=== PATIENT | male | born 1940 | race Caucasian/White ===

== ENCOUNTER 2020-11-13 14:30 | Emergency (ER) | payer OTHER, SELFPAY ==
--- NOTE | 2020-11-13 | ECG_ITS ---
Test Reason : CHEST PAIN Blood Pressure : / mmHG Vent. Rate : 060 BPM Atrial Rate : 060 BPM P-R Int : 194 ms QRS Dur : 092 ms QT Int : 430 ms P-R-T Axes : 005 -03 090 degrees QTc Int : 430 ms Normal sinus rhythm Anteroseptal infarct , age undetermined T wave abnormality, consider lateral ischemia Abnormal ECG When compared with ECG of 06-MAY-2012 13:46, Anteroseptal infarct is now Present T wave inversion now evident in Anterolateral leads Referred By: Generic ED Physician Electronically Signed By:Yovany Serna
--- NOTE | 2020-11-13 15:18 | ED_ITS ---
HPI - Chest Pain General Chief Complaint: Chest Pain Stated Complaint: chest pain Time Seen by Provider: 11/13/20 15:13 Source: patient Mode of arrival: ambulatory Limitations: no limitations History of Present Illness HPI narrative: did cardiac rehab today he denies any associated symptoms even did PT today which did not worsen his symptoms MD complaint: chest discomfort Pertinent past history: coronary artery disease and CABG Onset (ago): hour(s) (since he woke up early this AM) Timing of current episode: constant Onset: awoke with symptoms Pain location: right chest Pain radiation: none Severity: mild Quality: aching Relieving factors: nothing Exacerbating factors: nothing Context: recent surgery (s/p 3 V CABG 15 weeks ago at [facility]) Treatment prior to arrival: aspirin (daily dose) Related Data Allergies Allergy/AdvReac Type Severity Reaction Status Date / Time No Known Allergies Allergy Verified 11/13/20 15:27 Review of Systems Review of Systems: Constitutional : No Weight loss, No Fever, No Chills ENT/Mouth : No sore throat, No Rhinorrhea Eyes: No Eye Pain, No Swelling Cardiovascular : pos Chest Pain, no SOB, no Dyspnea on Exertion, No Orthopnea, No Edema, No Palpitations Respiratory : No Cough, No Sputum Gastrointestinal : pos Nausea, No Vomiting, No Diarrhea, No abdominal Pain, No Hematochezia, No Melena Genitourinary : No Dysuria, No Urinary Frequency Musculoskeletal : No joint pain, No Myalgias, No Joint Swelling Skin : No Skin Lesions, No rash Neuro : No Weakness, No Numbness, No Dizziness, No Headache Psych : No Anxiety/Panic, No Depression Heme/Lymph: No Bruising, No Lymphadenopathy Endocrine : No Polyuria, No Polydipsia All other systems reviewed and are negative [facility] Past Medical History Attestation statement: The following information was validated with the patient. Medical History Murmur, cardiac Surgical History S/P triple vessel bypass Social History Social History Alcohol intake: never Smoked in Last 30 Days: No Use of substances other than those prescribed or required for medical reasons: No Advance Directives: No Advance Directives Information Provided: No Physical Exam Vital Signs: Vital Signs: Last Vital Signs Pulse 61 11/13/20 15:41 Resp 16 11/13/20 15:41 BP 139/61 11/13/20 15:41 Pulse Ox 99 11/13/20 15:41 Body Mass Index 21.4 Appearance: Alert. Oriented X3. No acute distress. Eyes: Pupils equal, round and reactive to light. ENT: Pharynx normal. Neck: Normal inspection. Neck supple. CVS: Normal heart rate and rhythm. 3/6 systolic murmur loudest R sternum radiates to carotid Pulses normal. Respiratory: No respiratory distress. Breath sounds normal. Abdomen: Soft and nontender. Skin: Skin warm and dry. Normal skin color. Normal skin turgor. Extremities: No lower extremity edema. No calf ttp RLE slightly more swollen - graft sites healing well Neuro: Oriented X 3. No motor deficit. No sensory deficit. Course Course Course Narrative: signed out to Dr. Adams pending full workup, ddimer under upper limits of normal MDM - Chest Pain MDM Narrative Medical decision making narrative: 80 yo male s/p 3V CABG 15 weeks ago here with chest pain EKG is atypical but no STEMI we have tried to [facility] without success at this time labs, troponin x 2, ddimer given RLE swelling (no infection) dispo per results and findings Lab Data Result diagrams: 11/13/20 15:37 11/13/20 15:37 Labs: Lab Results 11/13/20 Range/Units 15:37 WBC 5.0 (4.8-10.8) X10*3/uL RBC 3.78 L (4.60-5.80) X10*6/uL Hgb 11.4 L (14.0-18.0) g/dl Hct 35.5 L (42-52) % MCV 93.9 (80-98) fL MCH 30.2 (27.0-33.0) pg MCHC 32.1 (31.0-36.0) g/dl RDW 14.8 (11.0-16.0) % Plt Count 163 (160-400) X10*3/uL MPV 10.6 (9.4-12.4) fL Immature Gran % (Auto) 0.4 (0.0-0.4) % Neut % (Auto) 54.4 (45-73) % Lymph % (Auto) 22.6 (20-40) % [place] % (Auto) 18.4 H (2-11) % Eos % (Auto) 3.8 (0-4) % Baso % (Auto) 0.4 (0-2) % Lymph # (Auto) 1.1 L (1.2-4.9) X10*3/uL [place] # (Auto) 0.9 (0.1-1.2) X10*3/uL Eos # (Auto) 0.2 (0.0-0.4) X10*3/uL Baso # (Auto) 0.0 (0.0-0.2) X10*3/uL Abs Immat Gran (auto) 0.02 (0.00-0.03) X10*3/uL Absolute Neuts (auto) 2.7 (2.0-8.3) X10*3/uL Absolute Nucleated RBC 0.000 (0.0-0.012) X10*3/uL Nucleated RBC % (auto) 0.0 (0.0-0.2) /100WBC ECG Data ECG #1: Attestation: I personally reviewed and interpreted this ECG as follows: ECG interpretation date: 11/13/20 ECG interpretation time: 15:19 Interpretation: Rate: 60 Rhythm: NSR [place]: left Normal P waves. Normal CLARICE. Normal QRS complex. ST T wave : no GHASSAN but inverted T waves in I aVL, V1-5 qTC: normal prior studies: 2011 was last NSR with no acute changes at that time The study has been interpreted contemporaneously by me. . Discharge Plan Discharge Clinical Impression: Atypical chest pain Instructions: Chest Pain (ED) Additional Instructions: return to ED for any worsening symptoms or concerns Referrals: Crow Romero MD [Primary Care Provider] - 2 days (call for next appointment if symptoms persist)
[2020-11-13 15:20] VITALS: BP 163/77; PULSE 65; RESP 16; O2SAT 99; BMI 21.4
--- NOTE | 2020-11-13 15:29 | XR_ITS ---
EXAMINATION: XR CHEST CLINICAL INFORMATION: Chest pain COMPARISON: None TECHNIQUE: Portable upright AP view of the chest was obtained. FINDINGS: There is no pneumothorax, airspace consolidation, or effusion. No pleural reaction. The costophrenic sulci are clear. There is disc atelectasis left lateral base and some mild coarsening of the infrahilar bronchiolar markings. No definite groundglass opacity. There are mediastinal clips and sternotomy wires. The heart is normal in size. The hilar and mediastinal contours are unremarkable. No visible acute bony abnormality. XR/XR chest 1V IMPRESSION: 1. Status post prior median sternotomy. No pneumothorax, vascular congestion, or effusion. 2. Disc atelectasis versus scarring left lateral base. Mild coarsening bronchiolar markings.
[2020-11-13 15:41] VITALS: BP 139/61; PULSE 61; RESP 16; O2SAT 99
[2020-11-13 15:44] LABS: Basophils Percent Auto 0.4 % (0-2); Eosinophils Absolute Auto 0.2 X10*3/uL (0.0-0.4); Eosinophils Percent Auto 3.8 % (0-4); Hematocrit 35.5 % (42-52); Hemoglobin 11.4 g/dl (14.0-18.0); Imm Gran Abs Auto 0.02 X10*3/uL (0.00-0.03); Imm Gran Pct Auto 0.4 % (0.0-0.4); Lymphocytes Absolute Auto 1.1 X10*3/uL (1.2-4.9); Lymphocytes Percent Auto 22.6 % (20-40); MANUAL DIFF FLAG NO; Mean Corpuscular HGB Conc 32.1 g/dl (31.0-36.0); Mean Corpuscular Hemoglobin 30.2 pg (27.0-33.0); Mean Corpuscular Volume 93.9 fL (80-98); Mean Platelet Volume 10.6 fL (9.4-12.4); Monocytes Absolute Auto 0.9 X10*3/uL (0.1-1.2); Monocytes Percent Auto 18.4 % (2-11); Neutrophils Absolute Auto 2.7 X10*3/uL (2.0-8.3); Neutrophils Percent Auto 54.4 % (45-73); Platelet Count 163 X10*3/uL (160-400); Red Blood Count 3.78 X10*6/uL (4.60-5.80); Red Cell Distribution Width 14.8 % (11.0-16.0)
[2020-11-13 15:59] LABS: Prothrombin Time 11.6 SEC (10.8-13.0)
[2020-11-13 16:01] LABS: Partial Thromboplastin Time 34.2 SEC (24.1-38.0)
[2020-11-13 16:02] LABS: D Dimer 249 NG/ML
[2020-11-13 16:11] LABS: Alanine Aminotransferase 25 U/L (0-40); Albumin Level 4.2 g/dL (3.5-5.0); Alkaline Phosphatase 102 U/L (39-117); Anion Gap 12 (12-20); Aspartate Amino Transferase 32 U/L (5-37); Bilirubin Direct 0.2 mg/dL (0.0-0.5); Bilirubin Total 0.4 mg/dL (0.0-1.0); Blood Urea Nitrogen 18 mg/dL (9-16); Calcium 8.5 mg/dL (8.4-10.2); Carbon Dioxide 27 mmol/L (22-29); Chloride 104 mmol/L (96-108); Creatinine Clr Calc Pharmacy 50.9; Estimated Glomerular Filt Rate > 60; Glucose Random 114 mg/dL (60-115); Lipase 74 U/L (8-78); Potassium 4.5 mmol/l (3.3-5.1); Sodium 138 mmol/L (135-145); Total Protein 6.9 g/dL (6.5-8.0)
[2020-11-13 16:19] LABS: Troponin-I High Sensitivity 20.9 ng/L (<3.5-35.0)
== END 2020-11-13 19:25 | disposition home or self-care (01) ==
PROVIDERS: Emergency Medicine; Emergency Provider Internal Medicine
DX: R07.89 Other chest pain (principal); R01.1 Cardiac murmur, unspecified
CPT/HCPCS: 36415; 71045; 80048; 80076; 83690; 83735; 84484; 85025; 85379; 85610; 85730; 93005; 99284

== ENCOUNTER → 2021-02-08 10:26 | Outpatient (BNVA) | payer OTHER, SELFPAY | PROVIDERS: Visit Provider Orthopaedic Surgery | DX: G56.01 Carpal tunnel syndrome, right upper limb (principal); G56.02 Carpal tunnel syndrome, left upper limb | CPT/HCPCS: 99202 ==

== ENCOUNTER 2021-03-08 14:07 | Day surgery (SDC) | payer OTHER, SELFPAY ==
[2021-03-08 14:38] VITALS: BP 127/64; PULSE 64; RESP 16; TEMP 36.5; O2SAT 97
[2021-03-08 15:18] VITALS: BMI 22.1
--- NOTE | 2021-03-08 15:45 | MHC.SHP ---
Pre-Procedural Eval Section B Chief Complaint: carpal tunnel Allergies: Allergies Allergy/AdvReac Type Severity Reaction Status Date / Time No Known Allergies Allergy Verified 02/08/21 10:38 Plan I have reviewed the history and physical and performed a pertinent physical examination on my patient. No changes have occurred unless specified.
--- NOTE | 2021-03-08 15:45 | W.PM.OPN ---
Operative Note Operative Note Date of Service: 03/08/21 Narrative: Preop diagnosis: 1. Right Carpal tunnel syndrome Postop diagnosis: 1. Right Carpal tunnel syndrome Procedure: 1. Right Carpal tunnel release Surgeon: Iraida Espana MD Anesthesia: local block using 1% lidocaine with epinephrine Findings: Thickened transverse carpal ligament. EBL: Less than 5 mL Specimens: None Complications: None Disposition: Brought to recovery room in stable condition Plan: Follow-up for 7-10 days for wound check and suture removal Indications: The patient is 80 years old, with right carpal tunnel syndrome that has been unresponsive to nonoperative management. The risks and benefits of operative treatment including but not limited to risk of damage to blood vessels, nerves, tendons, infection, persistent pain, persistent symptoms, or possible need for additional surgery were discussed with the patient and the patient wishes to proceed with surgery. Procedure: Once consent was obtained a local block was performed using a combination of 1% lidocaine with epinephrine. The patient was then brought back to the operating suite and placed on the operative table in supine position. A tourniquet was applied to the proximal aspect of the right upper extremity and the limb was prepped and draped in a standard surgical fashion. Once assured that we had a good block, a 1.5 cm longitudinal incision was made centered over the right carpal tunnel. The incision was made through the skin to the subcutaneous tissues using a #15 blade. Dissection was made down to the level of the transverse carpal ligament with care being taken to protect the palmar cutaneous nerve. Once the transverse carpal ligament was clearly visualized, a longitudinal incision was made in the transverse carpal ligament 1st using a #15 blade, then using tenotomy scissors under direct visualization. Care was taken to look for and protect the motor branch of the median nerve when seen in this area. Once satisfied with our carpal tunnel release the wound was copiously irrigated with normal saline and hemostasis was obtained with a brief period of local pressure. The skin edges were reapproximated with some 5.0 nylon suture material and a sterile dressing was applied. The patient appears to have tolerated the procedure well and with no complications. All digits were well vascularized at the conclusion of the case. susie
[2021-03-08 16:15] VITALS: BP 157/73; PULSE 66; RESP 18; TEMP 36.9; O2SAT 98
== END 2021-03-08 16:30 | disposition home or self-care (01) ==
PROVIDERS: Visit Provider Orthopaedic Surgery
PROC: (CPT 64721; principal; 2021-03-08 14:40)
DX: G56.01 Carpal tunnel syndrome, right upper limb (principal)
CPT/HCPCS: 64721

== ENCOUNTER → 2021-03-20 09:29 | Outpatient (BNVA) | payer OTHER, SELFPAY | PROVIDERS: Visit Provider Orthopaedic Surgery | DX: G56.03 Carpal tunnel syndrome, bilateral upper limbs (principal) | CPT/HCPCS: 99212 ==

== ENCOUNTER 2023-07-16 12:45 | Emergency (ER) | payer OTHER, SELFPAY ==
--- NOTE | 2023-07-16 12:47 | ECG_ITS ---
Test Reason : chest pain Blood Pressure : / mmHG Vent. Rate : 056 BPM Atrial Rate : 056 BPM P-R Int : 216 ms QRS Dur : 090 ms QT Int : 416 ms P-R-T Axes : 013 -02 096 degrees QTc Int : 401 ms Sinus bradycardia with 1st degree A-V block Anteroseptal infarct (cited on or before 13-NOV-2020) T wave abnormality, consider lateral ischemia Abnormal ECG When compared with ECG of 13-NOV-2020 15:08, T wave inversion no longer evident in Anterior leads Referred By: Hilary Hernandez Electronically Signed By:NURIA NOLASCO
[2023-07-16 12:52] VITALS: BP 163/66; PULSE 60; RESP 20; TEMP 36.8; O2SAT 98; BMI 22.9
--- NOTE | 2023-07-16 12:53 | ED.CHESTPAIN ---
HPI - Chest Pain General Chief Complaint: General Medical Stated Complaint: Taking Nitro Sent From [facility] Time Seen by Provider: 07/16/23 12:57 Related Data Home Medications Medication Instructions Recorded Confirmed aspirin 81 mg tablet,delayed 81 mg PO DAILY 02/08/21 release cetirizine 5 mg tablet 5 mg PO DAILY PRN 02/08/21 isosorbide dinitrate 5 mg tablet 5 mg PO BID 02/08/21 lisinopril 2.5 mg tablet 2.5 mg PO DAILY 02/08/21 metoprolol succinate 100 mg 100 mg PO DAILY 02/08/21 tablet,extended release 24 hr nitroglycerin 2.5 mg 2.5 mg PO BID 02/08/21 capsule,extended release ubiquinol 200 mg-B12 5 mg-folic cap PO 02/08/21 acid 0.8 mg-resveratrol 400 mg capsule Previous Rx's Medication Instructions Recorded hydrocodone 5 mg-acetaminophen 325 1 tab PO Q4-6H PRN pain #5 tabs 03/08/21 mg tablet Allergies Allergy/AdvReac Type Severity Reaction Status Date / Time No Known Allergies Allergy Verified 02/08/21 10:38 [facility] Past Medical History Medical History High blood pressure Murmur, cardiac Surgical History History of open heart surgery S/P triple vessel bypass Social History Social History Alcohol intake: never Advance Directives: No Advance Directives Information Provided: No Current occupational status: employed 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 denies CP at present. Denies SOB. Sent in from [place] EKG, labs, CXR ordered Full HPI, ROS and PE to be performed by primary ED provider. Reevaluation(s) Reevaluation #1: Was informed patients trop was 57.3 by Elsi Kelly Tried calling number in chart patients place of employment left general message asking Bryan to call us back to speak to me or a provider. No answer X2. Called emergency contact again it was his place of employment. Time: 09:59 Medical Decision Making Lab Data 07/16/23 13:27 07/16/23 13:27 Labs: Lab Results 07/16/23 07/16/23 07/16/23 Range/Units 13:27 13:27 13:27 WBC 3.7 L (4.8-10.8) X10*3/uL RBC 4.01 L (4.60-5.80) X10*6/uL Hgb 13.6 L (14.0-18.0) g/dl Hct 38.8 L (42.0-52.0) % MCV 96.8 (80.0-98.0) fL MCH 33.9 H (27.0-33.0) pg MCHC 35.1 (31.0-36.0) g/dl RDW 12.5 (11.0-16.0) % Plt Count 158 L (160-400) X10*3/uL MPV 10.1 (9.4-12.4) fL Immature Gran % (Auto) Cancelled Neut % (Auto) Cancelled Lymph % (Auto) Cancelled [place] % (Auto) Cancelled Eos % (Auto) Cancelled Baso % (Auto) Cancelled Lymph # (Auto) Cancelled [place] # (Auto) Cancelled Eos # (Auto) Cancelled Baso # (Auto) Cancelled Abs Immat Gran (auto) Cancelled Absolute Neuts (auto) Cancelled Absolute Nucleated RBC 0.000 (0.0-0.012) X10*3/uL Nucleated RBC % (auto) 0.0 (0.0-0.2) /100WBC Neutrophils % (Manual) 42 L (45-73) % Band Neutrophils % 6 H (3-5) % Lymphocytes % (Manual) 38 (20-40) % Monocytes % (Manual) 12 H (2-11) % Eosinophils % (Manual) 2 (0-4) % Abs Neuts (Manual) 1.8 L (2.0-8.3) X10*3/uL Lymphocytes # (Manual) 1.4 (1.2-4.9) X10*3/uL Monocytes # (Manual) 0.4 (0.1-1.2) X10*3/uL Eosinophils # (Manual) 0.1 (0.0-0.4) X10*3/uL Platelet Estimate NORMAL (NORMAL) Plt Morphology Comment NORMAL RBC Morphology NOTED Macrocytosis 1+ (5-14) /OIF [place] Cells 2+ (3-5) /OIF PT 11.7 (11.1-13.3) SEC INR 1.0 (0.9-1.1) Sodium 135 (135-145) mmol/L Potassium 4.6 (3.3-5.1) mmol/L Chloride 103 (96-108) mmol/L Carbon Dioxide 26 (22-29) mmol/L Anion Gap 11 L (12-20) BUN 16 (9-16) mg/dL Creatinine 1.11 (0.5-1.4) mg/dL Estim Creat Clear Calc 50.1 Estimated GFR > 60 Random Glucose 184 H (60-115) mg/dL Calcium 10.2 D (8.4-10.2) mg/dL Total Bilirubin 0.3 (0.0-1.0) mg/dL Direct Bilirubin 0.1 (0.0-0.5) mg/dL AST 21 (5-37) U/L ALT 15 (0-40) U/L Alkaline Phosphatase 84 (39-117) U/L Troponin I High Sens (<3.5-35.0) ng/L B-Natriuretic Peptide (<100) pg/mL Total Protein 7.7 (6.5-8.0) g/dL Albumin 4.5 (3.5-5.0) g/dL 07/16/23 07/16/23 Range/Units 13:27 13:27 WBC (4.8-10.8) X10*3/uL RBC (4.60-5.80) X10*6/uL Hgb (14.0-18.0) g/dl Hct (42.0-52.0) % MCV (80.0-98.0) fL MCH (27.0-33.0) pg MCHC (31.0-36.0) g/dl RDW (11.0-16.0) % Plt Count (160-400) X10*3/uL MPV (9.4-12.4) fL Immature Gran % (Auto) Neut % (Auto) Lymph % (Auto) [place] % (Auto) Eos % (Auto) Baso % (Auto) Lymph # (Auto) [place] # (Auto) Eos # (Auto) Baso # (Auto) Abs Immat Gran (auto) Absolute Neuts (auto) Absolute Nucleated RBC (0.0-0.012) X10*3/uL Nucleated RBC % (auto) (0.0-0.2) /100WBC Neutrophils % (Manual) (45-73) % Band Neutrophils % (3-5) % Lymphocytes % (Manual) (20-40) % Monocytes % (Manual) (2-11) % Eosinophils % (Manual) (0-4) % Abs Neuts (Manual) (2.0-8.3) X10*3/uL Lymphocytes # (Manual) (1.2-4.9) X10*3/uL Monocytes # (Manual) (0.1-1.2) X10*3/uL Eosinophils # (Manual) (0.0-0.4) X10*3/uL Platelet Estimate (NORMAL) Plt Morphology Comment RBC Morphology Macrocytosis /OIF [place] Cells /OIF PT (11.1-13.3) SEC INR (0.9-1.1) Sodium (135-145) mmol/L Potassium (3.3-5.1) mmol/L Chloride (96-108) mmol/L Carbon Dioxide (22-29) mmol/L Anion Gap (12-20) BUN (9-16) mg/dL Creatinine (0.5-1.4) mg/dL Estim Creat Clear Calc Estimated GFR Random Glucose (60-115) mg/dL Calcium (8.4-10.2) mg/dL Total Bilirubin (0.0-1.0) mg/dL Direct Bilirubin (0.0-0.5) mg/dL AST (5-37) U/L ALT (0-40) U/L Alkaline Phosphatase (39-117) U/L Troponin I High Sens 57.3 H (<3.5-35.0) ng/L B-Natriuretic Peptide 87 (<100) pg/mL Total Protein (6.5-8.0) g/dL Albumin (3.5-5.0) g/dL Discharge Plan Discharge Clinical Impression: Chest pain Patient Disposition: Elopement Prescriptions: No Action hydrocodone-acetaminophen 5-325 mg tablet 1 tab PO Q4-6H PRN (Reason: pain) Qty: 5 0RF Interventions: ED Discharge Assessment Last Done: 07/16/23 14:10 Discharge Date/Time: 07/16/23 14:10
[2023-07-16 13:35] LABS: Hematocrit 38.8 % (42.0-52.0); Hemoglobin 13.6 g/dl (14.0-18.0); Mean Corpuscular HGB Conc 35.1 g/dl (31.0-36.0); Mean Corpuscular Hemoglobin 33.9 pg (27.0-33.0); Mean Corpuscular Volume 96.8 fL (80.0-98.0); Mean Platelet Volume 10.1 fL (9.4-12.4); Platelet Count 158 X10*3/uL (160-400); Red Blood Count 4.01 X10*6/uL (4.60-5.80); Red Cell Distribution Width 12.5 % (11.0-16.0); White Blood Count 3.7 X10*3/uL (4.8-10.8)
[2023-07-16 13:53] LABS: Alanine Aminotransferase 15 U/L (0-40); Albumin Level 4.5 g/dL (3.5-5.0); Alkaline Phosphatase 84 U/L (39-117); Anion Gap 11 (12-20); Aspartate Amino Transferase 21 U/L (5-37); Bilirubin Direct 0.1 mg/dL (0.0-0.5); Bilirubin Total 0.3 mg/dL (0.0-1.0); Blood Urea Nitrogen 16 mg/dL (9-16); Calcium 10.2 mg/dL (8.4-10.2); Carbon Dioxide 26 mmol/L (22-29); Chloride 103 mmol/L (96-108); Creatinine Clr Calc Pharmacy 50.1; Estimated Glomerular Filt Rate > 60; Glucose Random 184 mg/dL (60-115); Potassium 4.6 mmol/L (3.3-5.1); Sodium 135 mmol/L (135-145); Total Protein 7.7 g/dL (6.5-8.0)
[2023-07-16 13:57] LABS: B Type Natriuretic Peptide 87 pg/mL (<100)
[2023-07-16 13:59] LABS: Troponin-I High Sensitivity 57.3 ng/L (<3.5-35.0)
[2023-07-16 14:06] LABS: Band Neutrophils Percent 6 % (3-5); Eosinophils Absolute Manual 0.1 X10*3/uL (0.0-0.4); Eosinophils Percent Manual 2 % (0-4); Lymphocytes Absolute Manual 1.4 X10*3/uL (1.2-4.9); Lymphocytes Percent Manual 38 % (20-40); Monocytes Absolute Manual 0.4 X10*3/uL (0.1-1.2); Monocytes Percent Manual 12 % (2-11); Neutrophils Absolute Manual 1.8 X10*3/uL (2.0-8.3); Neutrophils Percent Manual 42 % (45-73)
[2023-07-16 14:07] LABS: Burr Cells 2+ (3-5) /OIF; Macrocytosis 1+ (5-14) /OIF; Platelet Estimate NORMAL (NORMAL); Platelet Morphology Comment NORMAL; Prothrombin Time 11.7 SEC (11.1-13.3); RBC Morphology NOTED
== END 2023-07-16 14:10 | disposition left against medical advice (07) ==
PROVIDERS: Physician Assistant; Emergency Provider Emergency Medicine
DX: R07.89 Other chest pain (principal); R06.02 Shortness of breath; Z79.899 Other long term (current) drug therapy
CPT/HCPCS: 36415; 80048; 80076; 83880; 84484; 85007; 85027; 85610; 93005; 99283

== ENCOUNTER → 2023-09-22 09:38 | Outpatient (REF) | payer OTHER, SELFPAY ==
--- NOTE | ~2023-09-22 | NM_ITS ---
Exercise Myocardial perfusion study Indication: Shortness of breath with prior coronary artery bypass grafting to evaluate for myocardial ischemia Technique: The patient was brought in for an exercise perfusion study on 09/22/2023. Patient performed exercise as per Curtis protocol and was injected 25 mCi of sestamibi was given intravenously one target HR was achieved. Images were obtained using the SPECT gamma camera interlaced with the gating device. Images were obtained in supine position. Resting perfusion study was performed on 09/23/2023. Patient was administered 25 mCi of sestamibi intravenously at rest. Images were then obtained in supine position. Images obtained with and without CT attenuation. Total DLP 85 mGy-cm Images were processed with the software and compared side to side in short axis, horizontal long axis and vertical long axis views. Findings: The stress perfusion study showed images show mildly reduced uptake in the anterior as well as moderately reduced uptake in the basal and mid lateral as well as severely reduced uptake in the basal and mid anterolateral wall of the LV myocardium. Is also mildly reduced uptake in the septum and anteroseptal wall of the LV myocardium. Attenuated corrected images shows large area of moderately reduced uptake in the anterior, anterolateral, lateral and anteroseptal wall of the LV myocardium.. The gated study shows reduced LV systolic function with calculated LVEF of 35%. LV cavity is moderately dilated in size. The gated study shows reduced wall thickening and contraction of anterior and anterolateral as well as anteroseptal segments. There is mild to moderate transient ischemic dilation. Resting study shows attenuated corrected images show normal uptake of radiotracer in all segments of LV myocardium. Gating at rest reveals normal systolic wall motion with ejection fraction at 60%. The findings are consistent with large area of reversible defect in the anterior, anterolateral, anteroseptal, lateral wall of the LV myocardium consistent with ischemia in LAD territory. NM/NM elton perf SPECT rest & str Impression: 1. Large area of ischemia in the LAD territory 2. Gated LVEF is 35% with stress and 60% with rest 3. Transient ischemic dilatation present Stress EKG is positive for ischemia
--- NOTE | 2023-09-22 09:42 | CA_ITS ---
Acquisition Time: 2023-09-22 09:51:45 Total Exercise Time: 00:05:18 Test Indications: ANGINA Medications: Protocol: REKHA Max HR: 116 BPM 84% of Pred: 137 BPM Max BP: 142/070 mmHG Max Work Load: 7.0 METS Exerise stress test exercise 5 min 18 sec of Rekha protocol achieivng 83% MPHR, terminated due to EKG changes, with mild to moderate SOB, without chest discomfort, with BPs 128/62, exercise 142/62, peak 118/60, recovery 122/68, with positive EKGs for ischemia. Test reviewed with Dr Garcia. Call placed to ordering provider. Referred By: Walter De Jesus Overread By: Gerri Mariano
== END ==
LOC: HO.CARD 09:38
PROVIDERS: Visit Provider Internal Medicine Cardiovascular Disease
DX: I25.118 Atherosclerotic heart disease of native coronary artery with other forms of angina pectoris (principal)
CPT/HCPCS: 78452; 93017; A9500

== ENCOUNTER → 2023-09-22 09:47 | Outpatient (BNV) | payer OTHER, SELFPAY | PROVIDERS: Visit Provider Internal Medicine Cardiovascular Disease | DX: I25.10 Atherosclerotic heart disease of native coronary artery without angina pectoris (principal) | CPT/HCPCS: 78452; 93016; 93018 ==

== ENCOUNTER 2023-09-24 10:28 | Outpatient (AMB) | payer OTHER, SELFPAY ==
--- NOTE | 2023-09-24 10:37 | A.OFFVIS_ITS ---
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 He h ad CABG x 4, 4 years ago in [facility]. He said he did fine after that but started getting chest discomfort with activities for which he would use nitroglycerin. He has been using NTG for long time. He is somewhat poor historian. He had stress test recently where he had ECG changes and CP. His blood pressure is mildly elevated. He has not taking aspirin. 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 Review of Systems Const Denies chills, Denies daytime sleepiness, Denies fatigue, Denies fever(s), Denies frequent falls, Denies night sweats, Denies snoring, Denies weakness, Denies weight gain and Denies weight loss Eyes Denies loss of vision ENT Denies dizziness and Denies hearing loss Card Denies chest pain, Denies chest pain with activity, Denies syncope, Denies rapid heart rate, Denies edema, Denies claudication, Denies leg edema, Denies lightheadedness, Denies palpitations, Denies dyspnea, Denies dyspnea on exertion and Denies orthopnea Resp Denies cough, Denies excessive phlegm production, Denies dyspnea, Denies dyspnea on exertion, Denies snoring and Denies wheezing GI Denies abdominal pain, Denies hematochezia, Denies change in bowel habits, Denies change in stool character, Denies heartburn, Denies nausea and Denies vomiting Denies hematuria, Denies dysuria and Denies urinary frequency Musc Denies arthralgias, Denies muscle weakness, Denies numbness and Denies tingling Skin/Breast Denies nail changes and Denies rash Neuro Denies Abnormal speech present, Denies dizziness, Denies syncope, Denies frequent falls, Denies loss of vision, Denies memory loss, Denies numbness, Denies tingling and Denies weakness Psych Denies depression and Denies memory loss Endo Denies fatigue and Denies palpitations Aller/Immun Denies wheezing Physical Exam Vital Signs: Last Vital Signs Pulse 60 09/24/23 10:39 BP 142/66 H 09/24/23 10:39 BMI result Body Mass Index 23.0 GENERAL APPEARANCE: in no acute distress. NECK: no carotid bruit, no jugular venous distention. SKIN: no suspicious lesions, warm and dry. HEART: no murmurs, regular rate and rhythm. LUNGS: clear to auscultation bilaterally. ABDOMEN: soft, nontender. EXTREMITIES: no edema. PERIPHERAL PULSES: equal. NEUROLOGIC: No gross deficits, AAO X 3 Neuro Speech: No Abnormal speech present Assessment & Plan Assessment & Plan (1) Stable angina: Code(s): I20.89 - Other forms of angina pectoris (2) Essential hypertension: Code(s): I10 - Essential (primary) hypertension (3) Abnormal stress test: Code(s): R94.39 - Abnormal result of other cardiovascular function study (4) S/P triple vessel bypass: Code(s): Z95.1 - Presence of aortocoronary bypass graft Plan 83-year-old male with previous CABG and abnormal stress test. He has stable angina. ECG has anterior infarct with Q waves. Will check echo. Given symptoms and abnormal stress test I have advised him to get cardiac cath. Adding ASA and amlodipine 2.5 mg. He wants to check if he can get cath at [place]. If he wishes to get it done at [facility] then he will message us. Orders: Orders CA echo transthoracic complete Today I20.89 - Other forms of angina pectoris Medications: New amlodipine 2.5 mg PO DAILY 60 tabs 3RF I20.89 - Other forms of angina pectoris aspirin 81 mg PO DAILY 100 tabs 4RF I20.89 - Other forms of angina pectoris Coding Level of Care Code New Pt Level 4 (22589) Diagnoses Stable angina I20.89 Essential hypertension I10 Abnormal stress test R94.39 S/P triple vessel bypass Z95.1
[2023-09-24 10:39] VITALS: BP 142/66; PULSE 60; BMI 23.0
== END 2023-09-24 11:17 | disposition home or self-care (01) ==
PROVIDERS: Visit Provider Internal Medicine Cardiovascular Disease
DX: I20.89 Other forms of angina pectoris (principal); I10 Essential (primary) hypertension; R94.39 Abnormal result of other cardiovascular function study; Z95.1 Presence of aortocoronary bypass graft
CPT/HCPCS: 99214

== ENCOUNTER → 2023-09-24 10:28 | Outpatient (BNVA) | payer OTHER, SELFPAY | PROVIDERS: Visit Provider Internal Medicine Cardiovascular Disease | DX: I20.89 Other forms of angina pectoris (principal); I10 Essential (primary) hypertension; Z95.1 Presence of aortocoronary bypass graft; R94.39 Abnormal result of other cardiovascular function study | CPT/HCPCS: 99212 ==

== ENCOUNTER 2023-10-13 12:24 | Outpatient (AMB) | payer OTHER, SELFPAY ==
[2023-10-13 12:35] VITALS: BP 126/68; PULSE 71; O2SAT 96; BMI 22.7
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
== END 2023-10-13 13:26 | disposition home or self-care (01) ==
PROVIDERS: Visit Provider Internal Medicine Cardiovascular Disease
DX: R55 Syncope and collapse (principal); Z95.1 Presence of aortocoronary bypass graft; I20.89 Other forms of angina pectoris
CPT/HCPCS: 99214

== ENCOUNTER → 2023-10-13 12:24 | Outpatient (BNVA) | payer OTHER, SELFPAY | PROVIDERS: Visit Provider Internal Medicine Cardiovascular Disease | DX: I20.89 Other forms of angina pectoris (principal); R55 Syncope and collapse; Z95.1 Presence of aortocoronary bypass graft | CPT/HCPCS: 99212 ==

== ENCOUNTER → 2023-10-27 14:09 | Outpatient (REF) | payer OTHER, SELFPAY ==
--- NOTE | 2023-10-27 14:12 | HM_ITS ---
* Procedure length 30 days. Wear time 21 days. * Underlying rhythm is sinus 97% the time. Average ventricular rate 72/Min. Range 50 to 120/Min. * Occasional ventricular ectopy with a burden of 1.2%. Isolated beats. No significant runs. * Rare supraventricular ectopy with a burden of less than 1%. Very brief runs. * No significant pauses or heart blocks. * No symptoms mentioned in diary. MTDD
== END ==
LOC: HO.CARD 14:09
PROVIDERS: Visit Provider Internal Medicine Cardiovascular Disease
DX: R55 Syncope and collapse (principal)
CPT/HCPCS: 93270

== ENCOUNTER → 2023-10-27 14:12 | Outpatient (BNV) | payer OTHER, SELFPAY | PROVIDERS: Visit Provider Internal Medicine | DX: I47.10 Supraventricular tachycardia, unspecified (principal) | CPT/HCPCS: 93272 ==

== ENCOUNTER 2023-12-15 11:31 | Outpatient (AMB) | payer OTHER, SELFPAY ==
[2023-12-15 11:35] VITALS: BP 140/62; PULSE 70; BMI 21.9
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
== END 2023-12-15 12:34 | disposition home or self-care (01) ==
PROVIDERS: Visit Provider Internal Medicine Cardiovascular Disease
DX: I20.89 Other forms of angina pectoris (principal); Z95.1 Presence of aortocoronary bypass graft
CPT/HCPCS: 99214

== ENCOUNTER → 2023-12-15 11:31 | Outpatient (BNVA) | payer OTHER, SELFPAY | PROVIDERS: Visit Provider Internal Medicine Cardiovascular Disease | DX: I20.89 Other forms of angina pectoris (principal); Z95.1 Presence of aortocoronary bypass graft | CPT/HCPCS: 99212 ==

== ENCOUNTER 2024-03-01 14:54 | Outpatient (AMB) | payer OTHER, SELFPAY ==
[2024-03-01 15:01] VITALS: BP 126/60; PULSE 68; BMI 22.1
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
== END 2024-03-01 15:36 | disposition home or self-care (01) ==
PROVIDERS: Visit Provider Internal Medicine Cardiovascular Disease
DX: I20.89 Other forms of angina pectoris (principal); R55 Syncope and collapse; Z95.1 Presence of aortocoronary bypass graft; I35.0 Nonrheumatic aortic (valve) stenosis
CPT/HCPCS: 99214

== ENCOUNTER → 2024-03-01 14:54 | Outpatient (BNVA) | payer OTHER, SELFPAY | PROVIDERS: Visit Provider Internal Medicine Cardiovascular Disease | DX: I20.89 Other forms of angina pectoris (principal); I35.0 Nonrheumatic aortic (valve) stenosis; R55 Syncope and collapse; Z95.1 Presence of aortocoronary bypass graft | CPT/HCPCS: 99212 ==

== ENCOUNTER 2024-06-21 13:30 | Outpatient (AMB) | payer OTHER, SELFPAY ==
[2024-06-21 14:05] VITALS: BP 120/60; PULSE 77; BMI 22.3
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
== END 2024-06-21 14:42 | disposition home or self-care (01) ==
PROVIDERS: Visit Provider Internal Medicine Cardiovascular Disease
DX: I35.0 Nonrheumatic aortic (valve) stenosis (principal); R55 Syncope and collapse; Z95.1 Presence of aortocoronary bypass graft; I20.89 Other forms of angina pectoris
CPT/HCPCS: 93010; 99214

== ENCOUNTER → 2024-06-21 13:30 | Outpatient (BNVA) | payer OTHER, SELFPAY | PROVIDERS: Visit Provider Internal Medicine Cardiovascular Disease | DX: I35.0 Nonrheumatic aortic (valve) stenosis (principal); I20.89 Other forms of angina pectoris; R55 Syncope and collapse; Z95.1 Presence of aortocoronary bypass graft | CPT/HCPCS: 93005; 99212 ==

== ENCOUNTER → 2024-07-20 13:51 | Outpatient (REF) | payer OTHER, SELFPAY ==
--- NOTE | 2024-07-20 13:53 | CA_ITS ---
Transthoracic Echocardiogram Patient (Last, First, Middle): Bryan Noble H Gender: Male Date of : 1940 Age: 84 Procedure Date: 07/20/2024 Procedure Type: Transthoracic Echocardiogram Location: OP Height: 177.8 cm Weight: 68.04 kg BSA: 1.85 m2 Heart Rate: bpm BP: 118 / 62 mmHg Associate Merchandise Planner: TO Referring MD: Yovany Serna MD Surveying Crew Rodman: Yovany Serna MD Symptoms: I35.0 - Nonrheumatic aortic (valve) stenosis Study Quality: Fair, contrast Conclusions: - Normal left ventricular cavity size. There is normal left ventricular wall thickness. The left ventricular systolic function is moderately decreased. The visually estimated ejection fraction is between 30-35%. - The apex, apical anterior, mid anterior, apical lateral, and mid anterolateral segments are hypokinetic. - Normal right ventricular cavity size. There is mild to moderately decreased right ventricular systolic function. - There is moderate to severe aortic valve stenosis. The peak aortic velocity is 2.59 m/s. The mean gradient is 19 mmHg. The aortic valve area is 0.96 cm2. SVI 40. Findings Procedure Information Contrast agent, definity, is being given per protocol without apparent complications. Left Ventricle Normal left ventricular cavity size. There is normal left ventricular wall thickness. The left ventricular systolic function is moderately decreased. The visually estimated ejection fraction is between 30-35%. There is evidence of regional wall motion abnormalities. Diastolic function is indeterminate on the basis of available data. Wall Motion Rest Echo Findings The apex, apical anterior, mid anterior, apical lateral, and mid anterolateral segments are hypokinetic. Right Ventricle Normal right ventricular cavity size. There is mild to moderately decreased right ventricular systolic function. Atria The left atrium is severely dilated. The right atrium is normal in size. Aortic Valve There is severe calcification of the aortic valve. There is moderate thickening of the aortic valve. There is moderate to severe aortic valve stenosis. The peak aortic velocity is 2.59 m/s. The mean gradient is 19 mmHg. The aortic valve area is 0.96 cm2. There is mild aortic valve regurgitation. Mitral Valve The mitral valve appears normal. There is mild mitral valve regurgitation. There is no mitral valve stenosis. Pulmonic Valve The pulmonic valve is normal. There is trace pulmonic valve regurgitation. Tricuspid Valve Normal tricuspid valve structure. There is no tricuspid valve regurgitation. Normal right atrial pressure. There is no evidence of pulmonary hypertension. Great Vessels There is mild dilatation of the sinuses of Valsalva measuring 3.97 cm and mild dilatation of the ascending aorta measuring 3.70 cm. The visualized portions of the pulmonary artery and branches are normal. Venous The inferior vena cava is normal in size and collapses greater than 50% with inspiration. Pericardium/Pleural There is no evidence of pericardial effusion. Prior Study Comparison Significant changes compared to prior study dated: 05/14/2017. EF 30-35%, LAD territory wall motion, mod to severe . Measurements 2D Linear Measurements IVSd: 1.11 0.6-0.9/0.6-1.0 cm LVIDd: 4.99 3.9-5.3/4.2-5.9 cm LVIDd Index: 2.70 2.4-3.2/2.2-3.1 cm/m2 LVIDs: 3.87 2.0-3.6 cm LVPWd: 0.76 0.7-1.1 cm LA Diam: 4.30 2.7-3.8/3.0-4.0 cm LAIDs Index: 2.32 1.5-2.3 cm/m2 LV Mass: 206.37 67-162/88-224 g LV Mass Index: 111.55 43-95/49-115 g/m2 LVOT Diam: 2.00 3.0+(-)1.3 cm 2D Systolic Function EF 4C: 33.70 >55% EF 2C: 43.20 >55% EF BiP: 39.20 >55% Aortic Valve AoV Pk Chinmay: 2.59 AoV Mn Chinmay: 2.08 AoV VTI: 0.55 AoV Pk Grad: 27.00 Aov Mn Grad: 19.00 JERICHO Cont.VTI: 0.96 LVOT LVOT Pk Chinmay: 0.81 LVOT Mn Chinmay: 0.59 LVOT VTI: 0.17 LVOT Pk Grad: 3.00 LVOT Mn Grad: 2.00 LVOT Diam: 2.00 LVOT Area: 3.14 Right Ventricle TAPSE (mm): 12.60 TVS' Chinmay: 7.62 Tricuspid Valve TR Pk Chinmay: 2.60 TR Pk Grad: 27.00 RA Press: 3.00 RVSP: 30.00 Great Vessels Aorta Sinus of Valsalva: 3.97 2.0-3.5 cm Ao Asc: 3.70 2.1-3.4 cm Ao Arch: 3.30 Updated in Other Vendor System with Status of Final Yovany Serna MD electronically signed on 07/20/2024 6:47:23 PM with status of Final
== END ==
LOC: HO.CARD 13:51
PROVIDERS: PCP Internal Medicine; Visit Provider Internal Medicine Cardiovascular Disease
DX: I35.0 Nonrheumatic aortic (valve) stenosis (principal)
CPT/HCPCS: 93306; Q9957

== ENCOUNTER → 2024-07-20 13:53 | Outpatient (BNV) | payer OTHER, SELFPAY | PROVIDERS: PCP Internal Medicine; Visit Provider Internal Medicine Cardiovascular Disease | DX: I35.2 Nonrheumatic aortic (valve) stenosis with insufficiency (principal); I34.0 Nonrheumatic mitral (valve) insufficiency; R93.1 Abnormal findings on diagnostic imaging of heart and coronary circulation | CPT/HCPCS: 93306 ==

== ENCOUNTER → 2024-07-29 23:59 | Outpatient (BNV) | payer OTHER, SELFPAY | PROVIDERS: PCP Internal Medicine; Visit Provider Internal Medicine Cardiovascular Disease | DX: I42.9 Cardiomyopathy, unspecified (principal); I35.0 Nonrheumatic aortic (valve) stenosis; R93.1 Abnormal findings on diagnostic imaging of heart and coronary circulation | CPT/HCPCS: 93461; 99152 ==

== ENCOUNTER 2024-08-12 13:22 | Outpatient (AMB) | payer OTHER, SELFPAY ==
--- NOTE | 2024-08-12 14:05 | A.OFFVIS_ITS ---
Vital Signs 08/12/24 14:10 Height 5 ft 9 in Weight 138 lb 14.259 oz BMI 20.5 BP 110/62 Blood Pressure Location Lt brachial Position Sitting Pulse 76 Pulse Source Pulse Oximeter Intake Visit Reasons: Follow up post cardiac cath Allergies No Known Allergies Allergy (Verified 10/13/23 12:39) Medication List - Last Reconciled 08/16/24 by Gerri Mariano NP aspirin 81 mg PO DAILY atorvastatin 40 mg PO DAILY coQ10 (ubiquinol) (CoQmax Ubiquinol) 200 mg PO DAILY furosemide 20 mg PO DAILY lisinopril 10 mg PO DAILY metoprolol succinate ER 100 mg PO DAILY spironolactone 40 mg PO DAILY HPI Comments Details: 4-year-old male presents today for a follow up post cardiac catheterization. He would a cardiac catheterization with Dr. Serna on 07/29/2024. He has a history of aortic stenosis, syncope, triple vessel bypass, and hypertension. He had myocardial perfusion imaging which showed LAD territory ischemia was supposed to have a cardiac catheterization at the end of 2022 but due to spinal fracture it was held off. 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 Review of Systems Const Denies weakness ENT Denies dizziness Card Denies chest pain, Denies chest pain with activity, Denies syncope, Denies rapid heart rate, Denies pedal edema, Denies edema, Denies leg edema, Denies lightheadedness, Denies palpitations, Denies dyspnea, Denies dyspnea on exertion and Denies orthopnea Resp Denies cough, Denies dyspnea and Denies dyspnea on exertion GI Denies hematochezia and Denies change in stool character Musc Denies abnormal gait, Denies muscle cramps, Denies muscle weakness, Denies numbness, Denies radiating pain into limb and Denies tingling Neuro Denies abnormal gait, Denies dizziness, Denies syncope, Denies numbness, Denies tingling and Denies weakness Endo Denies palpitations Physical Exam Vital Signs: Last Vital Signs Pulse 76 08/12/24 14:10 BP 110/62 08/12/24 14:10 BMI result Body Mass Index 20.5 Assessment & Plan Assessment & Plan (1) S/P cardiac catheterization: Code(s): Z98.890 - Other specified postprocedural states Category: Surgical (2) S/P triple vessel bypass: Code(s): Z95.1 - Presence of aortocoronary bypass graft Category: Surgical (3) Essential hypertension: Code(s): I10 - Essential (primary) hypertension Category: Medical Plan Cardiac catheterization did not explain level of cardiomyopathy. Had patent HEATH to LAD and SVG to L-PDA. He was diuresed overnight at [facility]. We will switch from lisinopril to losartan. If tolerates losartan we will try Entresto. We will also add Jardiance. He is on a baby aspirin, metoprolol, furosemide, atorvastatin, and spironolactone. We will repeat blood work. Orders: Orders Basic Metabolic Panel Today I10 - Essential (primary) hypertension, Z95.1 - Presence of aortocoronary bypass graft, Z98.890 - Other specified postprocedural states Lipid Panel Today I10 - Essential (primary) hypertension, Z95.1 - Presence of aortocoronary bypass graft, Z98.890 - Other specified postprocedural states B Type Natriuretic Peptide Today I10 - Essential (primary) hypertension, Z95.1 - Presence of aortocoronary bypass graft, Z98.890 - Other specified postprocedural states Medications: New losartan 25 mg PO DAILY 30 tabs 0RF empagliflozin (Jardiance) 10 mg PO DAILY 30 tabs 0RF Coding Level of Care Code Est Pt Level 4 (78740) Diagnoses S/P cardiac catheterization Z98.890 S/P triple vessel bypass Z95.1 Essential hypertension I10
[2024-08-12 14:10] VITALS: BP 110/62; PULSE 76; BMI 20.5
== END 2024-08-12 14:42 | disposition home or self-care (01) ==
PROVIDERS: PCP Internal Medicine; Visit Provider Nurse Practitioner
DX: Z98.890 Other specified postprocedural states (principal); Z95.1 Presence of aortocoronary bypass graft; I10 Essential (primary) hypertension
CPT/HCPCS: 99214

== ENCOUNTER → 2024-08-12 13:22 | Outpatient (BNVA) | payer OTHER, SELFPAY | PROVIDERS: PCP Internal Medicine; Visit Provider Nurse Practitioner | DX: I35.0 Nonrheumatic aortic (valve) stenosis (principal); I10 Essential (primary) hypertension; Z98.890 Other specified postprocedural states; Z95.1 Presence of aortocoronary bypass graft | CPT/HCPCS: 99212 ==

== ENCOUNTER 2024-09-03 09:09 | Outpatient (REF) | payer OTHER, SELFPAY ==
[2024-09-03 11:25] LABS: B Type Natriuretic Peptide 376 pg/mL (<100)
[2024-09-03 13:18] LABS: Anion Gap 12 (12-20); Blood Urea Nitrogen 24 mg/dL (9-16); Calcium 9.7 mg/dL (8.4-10.2); Carbon Dioxide 22 mmol/L (22-29); Chloride 103 mmol/L (96-108); Cholesterol 108 mg/dL (<200); Estimated Glomerular Filt Rate 57; Glucose Random 150 mg/dL (60-115); HDL Cholesterol 52 mg/dL (>40); LDL Cholesterol Calculated 24 mg/dL (<100); Potassium 4.4 mmol/L (3.3-5.1); Sodium 133 mmol/L (135-145); Triglycerides 161 mg/dL (<150)
== END 2024-09-03 09:10 | disposition home or self-care (01) ==
LOC: HO.LAB 09:09
PROVIDERS: Absent Provider Internal Medicine Cardiovascular Disease; Visit Provider Nurse Practitioner
DX: I10 Essential (primary) hypertension (principal); Z95.1 Presence of aortocoronary bypass graft; Z98.890 Other specified postprocedural states
CPT/HCPCS: 36415; 80048; 80061; 83880

== ENCOUNTER 2024-09-08 11:30 | Outpatient (REF) | payer OTHER, SELFPAY ==
[2024-09-08 12:29] LABS: Hematocrit 35.3 % (42.0-52.0); Hemoglobin 12.2 g/dl (14.0-18.0); Mean Corpuscular HGB Conc 34.6 g/dl (31.0-36.0); Mean Corpuscular Hemoglobin 33.4 pg (27.0-33.0); Mean Corpuscular Volume 96.7 fL (80.0-98.0); Mean Platelet Volume 10.9 fL (9.4-12.4); Platelet Count 166 X10*3/uL (160-400); Red Blood Count 3.65 X10*6/uL (4.60-5.80); Red Cell Distribution Width 12.6 % (11.0-16.0); White Blood Count 4.8 X10*3/uL (4.8-10.8)
[2024-09-08 12:45] LABS: Prothrombin Time 11.4 SEC (10.9-12.4)
[2024-09-08 12:58] LABS: Anion Gap 14 (12-20); Blood Urea Nitrogen 19 mg/dL (9-16); Calcium 9.6 mg/dL (8.4-10.2); Carbon Dioxide 24 mmol/L (22-29); Chloride 101 mmol/L (96-108); Estimated Glomerular Filt Rate 42; Glucose Random 124 mg/dL (60-115); Potassium 4.1 mmol/L (3.3-5.1); Sodium 135 mmol/L (135-145)
[2024-09-08 12:59] LABS: Anion Gap 13 (12-20); Band Neutrophils Percent 0 % (3-5); Blood Urea Nitrogen 19 mg/dL (9-16); Calcium 9.5 mg/dL (8.4-10.2); Carbon Dioxide 25 mmol/L (22-29); Chloride 102 mmol/L (96-108); Eosinophils Percent Manual 1 % (0-4); Estimated Glomerular Filt Rate 41; Glucose Random 125 mg/dL (60-115); Lymphocytes Absolute Manual 1.2 X10*3/uL (1.2-4.9); Lymphocytes Percent Manual 25 % (20-40); Monocytes Absolute Manual 0.8 X10*3/uL (0.1-1.2); Monocytes Percent Manual 17 % (2-11); Neutrophils Absolute Manual 2.7 X10*3/uL (2.0-8.3); Neutrophils Percent Manual 57 % (45-73); Potassium 4.1 mmol/L (3.3-5.1); Sodium 136 mmol/L (135-145)
[2024-09-08 13:00] LABS: Platelet Estimate NORMAL (NORMAL); Platelet Morphology Comment NORMAL; RBC Morphology NORMAL
[2024-09-08 13:01] LABS: B Type Natriuretic Peptide 504 pg/mL (<100)
== END 2024-09-08 11:31 | disposition home or self-care (01) ==
LOC: HO.LAB 11:30
PROVIDERS: Absent Provider Nurse Practitioner; PCP Internal Medicine; Visit Provider Internal Medicine Cardiovascular Disease
DX: I35.0 Nonrheumatic aortic (valve) stenosis (principal); I20.89 Other forms of angina pectoris; R94.30 Abnormal result of cardiovascular function study, unspecified
CPT/HCPCS: 36415; 80048; 83880; 85007; 85027; 85610

== ENCOUNTER 2024-09-15 10:01 | Outpatient (AMB) | payer OTHER, SELFPAY ==
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
[2024-09-15 10:14] VITALS: BP 120/62; PULSE 61; BMI 21.4
== END 2024-09-15 10:51 | disposition home or self-care (01) ==
PROVIDERS: PCP Internal Medicine; Visit Provider Internal Medicine Cardiovascular Disease
DX: I35.0 Nonrheumatic aortic (valve) stenosis (principal); I42.8 Other cardiomyopathies
CPT/HCPCS: 99214

== ENCOUNTER → 2024-09-15 10:01 | Outpatient (BNVA) | payer OTHER, SELFPAY | PROVIDERS: PCP Internal Medicine; Visit Provider Internal Medicine Cardiovascular Disease | DX: I35.0 Nonrheumatic aortic (valve) stenosis (principal); I42.8 Other cardiomyopathies | CPT/HCPCS: 99212 ==

== ENCOUNTER → 2024-10-25 07:51 | Outpatient (REF) | payer OTHER, SELFPAY ==
--- NOTE | 2024-10-25 08:01 | CA_ITS ---
Transthoracic Echocardiogram Patient (Last, First, Middle): Bryan Noble H Gender: Male Date of : 1940 Age: 84 Procedure Date: 10/25/2024 Procedure Type: Transthoracic Echocardiogram Location: OP Height: 175.26 cm Weight: 63.5 kg BSA: 1.78 m2 Heart Rate: 62 bpm BP: 110 / 55 mmHg Warehouseman: MALU Referring MD: Yovany Serna MD Symptoms: I42.8 - Other cardiomyopathies Study Quality: Adequate ECG Rhythm: Sinus Conclusions: - Normal left ventricular cavity size. There is mildly increased left ventricular wall thickness. The left ventricular systolic function is moderately decreased. The visually estimated ejection fraction is between 30-35%. - Concerned that he has apical thrombus present. Images were done without contrast. - The anteroseptal wall, the apex, and apical lateral segments are akinetic. - There is moderate aortic valve stenosis. - There is mild dilatation of the sinuses of Valsalva measuring 4.10 cm and mild dilatation of the ascending aorta measuring 3.90 cm. Findings Left Ventricle Normal left ventricular cavity size. There is mildly increased left ventricular wall thickness. The left ventricular systolic function is moderately decreased. The visually estimated ejection fraction is between 30 35%. There is mild global hypokinesis. Abnormal diastolic function is noted. Spectral Doppler is indicative of an impaired relaxation filling pattern. Elevated filling pressures. Concerned that he has apical thrombus present. Images were done without contrast. Wall Motion Rest Echo Findings The anteroseptal wall, the apex, and apical lateral segments are akinetic. Right Ventricle Normal right ventricular cavity size. There is mildly decreased right ventricular systolic function. Atria The right atrium is normal in size. Aortic Valve There is a normal trileaflet aortic valve. There is moderate calcification of the aortic valve. There is moderate aortic valve stenosis. The peak aortic velocity is 2.70 m/s. The mean gradient is 18 mmHg. The aortic valve area is 1.01 cm2. There is mild aortic valve regurgitation. Mitral Valve The mitral valve appears normal. There is trace mitral valve regurgitation. There is no mitral valve stenosis. Great Vessels There is mild dilatation of the sinuses of Valsalva measuring 4.10 cm and mild dilatation of the ascending aorta measuring 3.90 cm. Venous The inferior vena cava is normal in size and collapses greater than 50% with inspiration. Pericardium/Pleural There is no evidence of pericardial effusion. Prior Study Comparison Changes noted compared to prior study dated: 07/20/2024. Concern for apical thrombus. We will arrange urgent limited echo with contrast. Measurements 2D Linear Measurements IVSd: 1.14 0.6-0.9/0.6-1.0 cm LVIDd: 4.16 3.9-5.3/4.2-5.9 cm LVIDd Index: 2.34 2.4-3.2/2.2-3.1 cm/m2 LVIDs: 3.21 2.0-3.6 cm LVPWd: 1.01 0.7-1.1 cm LA Diam: 3.30 2.7-3.8/3.0-4.0 cm LAIDs Index: 1.85 1.5-2.3 cm/m2 LV Mass: 186.42 67-162/88-224 g LV Mass Index: 104.73 43-95/49-115 g/m2 LVOT Diam: 2.00 3.0+(-)1.3 cm 2D Systolic Function EF 4C: 33.40 >55% EF 2C: 48.00 >55% EF BiP: 40.00 >55% Mitral Valve MV Pk E: 0.51 MV PK A: 1.06 MV Decel Time: 332.00 E/A: 0.50 E'Lateral: 3.16 E'Medial: 3.24 E/E' Med: 15.60 E/E' Lat: 16.00 PHT: 97.00 MVA PHT: 2.27 Decel [place]: 1.53 Aortic Valve AoV Pk Chinmay: 2.70 AoV Mn [place]: 2.00 AoV VTI: 0.64 AoV Pk Grad: 29.00 Aov Mn Grad: 18.00 JERICHO Cont.VTI: 1.01 AI Pk [place]: 3.41 AI [place]: 1.98 LVOT LVOT Pk [place]: 0.84 LVOT Mn [place]: 0.59 LVOT VTI: 0.21 LVOT Pk Grad: 3.00 LVOT Mn Grad: 2.00 LVOT Diam: 2.00 LVOT Area: 3.14 Diastolic Function MV Pk E: 0.51 MV Pk A: 1.06 E/A: 0.50 E'Medial: 3.24 E/E' Med: 15.60 E' Laterial: 3.16 E/E' Lat: 16.00 Right Ventricle TAPSE (mm): 12.60 TVS' [place]: 7.62 Tricuspid Valve TR Pk Chinmay: 1.44 TR Pk Grad: 8.00 RA Press: 3.00 RVSP: 11.00 Great Vessels Aorta Sinus of Valsalva: 4.10 2.0-3.5 cm Ao Asc: 3.90 2.1-3.4 cm Ao Arch: 3.40 Pulmonary Valve PV Pk Chinmay: 0.64 Peak PV Grad: 2.00 Updated in Other Vendor System with Status of Final Yovany Serna MD electronically signed on 10/27/2024 12:07:39 PM with status of Final
== END ==
LOC: HO.CARD 07:51
PROVIDERS: PCP Internal Medicine; Visit Provider Internal Medicine Cardiovascular Disease
DX: I42.8 Other cardiomyopathies (principal)
CPT/HCPCS: 93306

== ENCOUNTER → 2024-10-27 15:51 | Outpatient (REF) | payer OTHER, SELFPAY ==
--- NOTE | 2024-10-27 15:54 | CA_ITS ---
Transthoracic Echocardiogram Patient (Last, First, Middle): Bryan Noble H Gender: Male Date of : 1940 Age: 84 Procedure Date: 10/27/2024 Procedure Type: Transthoracic Echocardiogram Location: OP Height: 175.26 cm Weight: 63.5 kg BSA: 1.78 m2 Heart Rate: bpm BP: 104 / 54 mmHg Equipment Technician: LILY Referring MD: Yovany Serna MD Symptoms: I42.8 - Other cardiomyopathies Study Quality: Fair, contrast Conclusions: - Normal left ventricular cavity size. The left ventricular systolic function is borderline reduced. The visually estimated ejection fraction is between 45-50%. - The anterolateral wall, the basal anterior, and mid anterior segments are akinetic. - The mid anteroseptal segment is dyskinetic. - No apical thrombus noted on definity study. Findings Procedure Information Contrast agent, definity, is being given per protocol without apparent complications. Left Ventricle Normal left ventricular cavity size. The left ventricular systolic function is borderline reduced. The visually estimated ejection fraction is between 45-50%. There is evidence of regional wall motion abnormalities. Wall Motion Rest Echo Findings The anterolateral wall, the basal anterior, and mid anterior segments are akinetic. The mid anteroseptal segment is dyskinetic. Prior Study Comparison Changes noted compared to prior study dated: 10/25/2024. EF 45 to 50%. Measurements 2D Systolic Function EF 4C: 49.90 >55% EF 2C: 46.40 >55% EF BiP: 47.50 >55% Updated in Other Vendor System with Status of Final Yovany Serna MD electronically signed on 10/28/2024 1:03:35 PM with status of Final
== END ==
LOC: HO.CARD 15:51
PROVIDERS: PCP Internal Medicine; Visit Provider Internal Medicine Cardiovascular Disease
DX: I42.8 Other cardiomyopathies (principal)
CPT/HCPCS: 93308; Q9957

== ENCOUNTER → 2024-10-27 15:54 | Outpatient (BNV) | payer OTHER, SELFPAY | PROVIDERS: PCP Internal Medicine; Visit Provider Internal Medicine Cardiovascular Disease | DX: I42.8 Other cardiomyopathies (principal); R93.1 Abnormal findings on diagnostic imaging of heart and coronary circulation | CPT/HCPCS: 93308 ==

== ENCOUNTER 2024-12-16 14:19 | Outpatient (AMB) | payer OTHER, SELFPAY ==
[2024-12-16 14:23] VITALS: BP 100/52; PULSE 72; BMI 21.2
--- NOTE | 2024-12-16 14:23 | MHC.OFFVIS ---
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: Fast Food Server Present Allergies No Known Allergies Allergy (Verified 12/16/24 14:25) Medication List - Last Reconciled 12/16/24 by Maya Bryant NP-C atorvastatin 40 mg PO DAILY coQ10 (ubiquinol) (CoQmax Ubiquinol) 200 mg PO DAILY empagliflozin (Jardiance) 10 mg PO DAILY furosemide 20 mg PO DAILY metoprolol succinate ER 50 mg PO DAILY sacubitril-valsartan 24-26 mg (Entresto) 1 tab PO BID spironolactone (Aldactone) 12.5 mg PO DAILY HPI HPI 3 mth fu (KM): Details: Bryan is an 84-year-old male with past medical history of hyperlipidemia, hypertension, coronary artery disease status post coronary artery bypass grafting, prior stable angina, nonischemic cardiomyopathy, aortic stenosis who presents for follow-up after recent echo. Today he states he has been doing well since his last visit in August. He has not had any concerning symptoms. He denies chest discomfort at rest or with activity. No shortness of breath, PND, orthopnea or edema. No palpitations, lightheadedness, presyncope, syncope. He is still not driving. He takes his medications as directed. His [id number] is present. 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 Review of Systems Const All systems reviewed & are unremarkable except as noted in HPI and below ENT Denies dizziness Card Denies chest pain, Denies chest pain at rest, Denies chest pain with activity, Denies rapid heart rate, Denies pedal edema, Denies edema, Denies leg edema, Denies lightheadedness, Denies palpitations, Denies dyspnea, Denies dyspnea on exertion and Denies orthopnea Resp Denies cough, Denies dyspnea and Denies dyspnea on exertion GI Denies hematochezia and Denies change in stool character Musc Denies abnormal gait, Denies limited range of motion, Denies muscle cramps, Denies muscle weakness, Denies numbness, Denies radiating pain into limb, Denies stiffness and Denies tingling Neuro Denies abnormal gait, Denies dizziness, Denies numbness and Denies tingling Endo Denies palpitations Physical Exam Vital Signs: Last Vital Signs Pulse 72 12/16/24 14:23 BP 100/52 L 12/16/24 14:23 BMI result Body Mass Index 21.2 Const General: cooperative, healthy appearing, comfortable and no acute distress Orientation/consciousness: patient oriented x3 Neck Neck: Yes normal visual inspection Resp Effort & Inspection: normal respiratory effort Auscultation: clear to auscultation bilaterally, no rales, no rhonchi and no wheezes Cardio Rate: regular rate Rhythm: regular rhythm Heart sounds: S1 normal heart sound present, S2 normal heart sound present, Murmur heart sound present (systolic murmur right sternal border) and no rubs Neuro General: patient oriented x3 Extrem General: Yes normal to inspection and No no pedal edema Psych Appearance: grossly normal Mental Status: mental status grossly normal Speech and movement: Normal speech and movement present Assessment & Plan Assessment & Plan (1) CAD (coronary artery disease): Code(s): I25.10 - Atherosclerotic heart disease of [place] coronary artery without angina pectoris Category: Medical Plan: History of CAD with prior coronary artery bypass grafting. On prior visit he was reporting some chest discomfort. He then had an episode of decompensated heart failure with EF 35%. Following diuresing he underwent cardiac catheterization on 07/29/2024 which showed occluded left main, patent HEATH to LAD, patent vein graft from aorta right to the distal RCA, vein graft to the left PDA with 60-70% stenosis. This did not account for his symptom or the degree of his cardiomyopathy. Today he reports he has been doing well with no recent chest discomfort. At this time he tells me he is not taking aspirin and does not want to as it bothers his stomach. Will check with his primary skein drier regarding the use of clopidogrel. Will continue atorvastatin with ideal LDL goal less than 70. Labs done 09/03/2024 showed LDL 24. Continue metoprolol. Signs and symptoms of angina reviewed with him. Instructed to notify this office if he has recurrent symptoms. Emergency care if ever needed for symptoms not relieved by rest. (2) S/P triple vessel bypass: Comment: HEATH to LAD, SVG to distal RCA and SVG to left PDA -approximately 1999 Code(s): Z95.1 - Presence of aortocoronary bypass graft Category: Surgical Plan: As above (3) S/P cardiac catheterization: Comment: 07/29/2024, occluded left main, occluded proximal LAD, occluded left circumflex, patent HEATH to LAD, RCA moderate diffuse disease, SVG graft from aorta right to the distal RCA, SVG to the left PDA, 60-70% stenosis. Code(s): Z98.890 - Other specified postprocedural states Category: Surgical Plan: As above (4) NICM (nonischemic cardiomyopathy): Code(s): I42.8 - Other cardiomyopathies Category: Medical Plan: Nonischemic cardiomyopathy. Echocardiogram done 10/25/2024 showing EF 30-35%, concern for apical thrombus, anterior septal, apex and apical lateral segments akinetic, moderate aortic stenosis. He then underwent a repeat echocardiogram using definity contrast on 10/27/2024 which showed EF 45-50%, anterior lateral wall, basal anterior and mid anterior segments akinetic, mid anterior septal dyskinetic, no apical thrombus noted. His EF had shown improvement. He was continued on meds for neurohormonal modulation including metoprolol, Entresto, Jardiance. Labs done 09/08/2024 showed creatinine 1.6, potassium 4.1. On exam today he does not appear fluid overloaded. No med changes made. Blood pressure is low today, asymptomatic. (5) Aortic stenosis: Code(s): I35.0 - Nonrheumatic aortic (valve) stenosis Category: Medical Plan: Echocardiogram from 10/25/2024 is showing moderate aortic stenosis, mean gradient 18 mmHg, aortic valve area 1.01 centimeter sq. Will plan for a repeat echo prior to his next visit to assess rate of change. Diagnosis of aortic stenosis reviewed with him. Cardinal signs of severe discussed. (6) Essential hypertension: Code(s): I10 - Essential (primary) hypertension Category: Medical Plan: On low side today, asymptomatic. No med changes made. Plan Time spent on chart review, documentation, interview and assessment Orders: Orders CA echo transthorac w con 05/31/25 I35.0 - Nonrheumatic aortic (valve) stenosis, I42.8 - Other cardiomyopathies Coding Level of Care Code Est Pt Level 4 (70096) Complex EM visit Add On G2211 Diagnoses CAD (coronary artery disease) I25.10 S/P triple vessel bypass Z95.1 S/P cardiac catheterization Z98.890 NICM (nonischemic cardiomyopathy) I42.8 Aortic stenosis I35.0 Essential hypertension I10 Time Spent (min) 28
== END 2024-12-16 15:03 | disposition home or self-care (01) ==
PROVIDERS: PCP Internal Medicine; Visit Provider Nurse Practitioner Family
DX: I25.10 Atherosclerotic heart disease of native coronary artery without angina pectoris (principal); Z95.1 Presence of aortocoronary bypass graft; Z98.890 Other specified postprocedural states; I42.8 Other cardiomyopathies; I35.0 Nonrheumatic aortic (valve) stenosis; I10 Essential (primary) hypertension
CPT/HCPCS: 99214; G2211

== ENCOUNTER → 2024-12-16 14:19 | Outpatient (BNVA) | payer OTHER, SELFPAY | PROVIDERS: PCP Internal Medicine; Visit Provider Nurse Practitioner Family | DX: I10 Essential (primary) hypertension (principal); I25.10 Atherosclerotic heart disease of native coronary artery without angina pectoris; I42.8 Other cardiomyopathies; I35.0 Nonrheumatic aortic (valve) stenosis; Z98.890 Other specified postprocedural states; Z95.1 Presence of aortocoronary bypass graft | CPT/HCPCS: 99212 ==

== ENCOUNTER 2025-01-13 14:25 | Outpatient (AMB) | payer OTHER, SELFPAY ==
[2025-01-13 14:55] VITALS: BP 122/62; PULSE 75; BMI 21.0
--- NOTE | 2025-01-13 14:55 | A.OFFVIS_ITS ---
Vital Signs 01/13/25 14:55 Height 5 ft 9 in Weight 142 lb BMI 21.0 BP 122/62 Blood Pressure Location Lt brachial Position Sitting Pulse 75 Pulse Source Monitor Intake Visit Reasons: cardiac rehab referred chest pain Allergies No Known Allergies Allergy (Verified 12/16/24 14:25) Medication List - Last Reconciled 01/13/25 by Isreal Fowler NP atorvastatin 40 mg PO DAILY celecoxib 100 mg PO DAILY clopidogrel 75 mg PO DAILY coQ10 (ubiquinol) (CoQmax Ubiquinol) 200 mg PO DAILY empagliflozin (Jardiance) 10 mg PO DAILY furosemide 20 mg PO DAILY metoprolol succinate ER 50 mg PO DAILY sacubitril-valsartan 24-26 mg (Entresto) 1 tab PO BID spironolactone (Aldactone) 12.5 mg PO DAILY HPI Comments Details: This is an 84-year-old male patient presenting for an office visit. His medical history includes hyperlipidemia, hypertension, coronary artery disease status post CABG, nonischemic cardiomyopathy, and aortic stenosis. Was referred to our office from cardiac rehab after experiencing 4/10 chest pain during bike exercise at [facility], which resolved with rest after 6 minutes. He also mentioned to the nurse that he experiences similar symptoms at home. Today, the patient reported having exertional chest pain for the past year. He explains that a year ago he was taken off the nitroglycerin. During that time he was not exerting himself and therefore had no chest pain but recently he has been noticing that he has starting to experience chest pain again with activity. The patient denies any associated shortness of breath, palpitations, dizziness, orthopnea, PND, leg edema, presyncope, or syncope. 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 Review of Systems Const Denies weakness ENT Denies dizziness Card Denies chest pain, Denies chest pain with activity, Denies syncope, Denies rapid heart rate, Denies pedal edema, Denies edema, Denies leg edema, Denies lighth eadedness, Denies palpitations, Denies dyspnea, Denies dyspnea on exertion and Denies orthopnea Resp Denies cough, Denies dyspnea and Denies dyspnea on exertion GI Denies hematochezia and Denies change in stool character Musc Denies abnormal gait, Denies muscle cramps, Denies muscle weakness, Denies numbness, Denies radiating pain into limb and Denies tingling Neuro Denies abnormal gait, Denies dizziness, Denies syncope, Denies numbness, Denies tingling and Denies weakness Endo Denies palpitations Physical Exam Vital Signs: Last Vital Signs Pulse 75 01/13/25 14:55 BP 122/62 01/13/25 14:55 BMI result Body Mass Index 21.0 Const General: cooperative, healthy appearing, comfortable and no acute distress Orientation/consciousness: patient oriented x3 HEENT Head: Yes normal to inspection Neck Neck: Yes normal visual inspection, Yes trachea midline and Yes supple Chest Chest palpation & inspection: normal inspection of the chest Resp Effort & Inspection: normal respiratory effort Auscultation: clear to auscultation bilaterally, no crackles, no rales, no rhonchi and no wheezes Cardio Jugular venous distension: no JVD Palpation: normal PMI Rate: regular rate Rhythm: regular rhythm Heart sounds: S1 normal heart sound present, S2 normal heart sound present, no click, no gallops, Murmur heart sound present systolic at the left sternal border and at the right sternal border and no rubs Peripheral pulses: Peripheral pulses 2+ throughout GI Inspection: Yes normal to inspection Palpation (GI): Soft to palpation Auscultation: normal bowel sounds Skin General skin exam: no rashes or lesions noted Neuro General: patient oriented x3 Extrem General: Yes normal to inspection, No no pedal edema and No calf tenderness Psych Appearance: grossly normal Mental Status: mental status grossly normal Speech and movement: Normal speech and movement present Assessment & Plan Assessment & Plan (1) Chest pain: Code(s): R07.9 - Chest pain, unspecified Category: Medical Plan: 07/29/2024- cardiac catheterization showed occluded left main, occluded proximal LAD, occluded left circumflex, patent HEATH to LAD, RCA moderate diffuse disease, SVG graft from aorta right to the distal RCA, SVG to the left PDA, 60-70% stenos is. He has been on the Plavix but is no longer taking aspirin due to stomach problems from it. We will start him on Imdur 30 mg daily to see if it helps with his symptoms. Reviewed this with Dr. Serna- no further testing at this time. (2) CAD (coronary artery disease): Code(s): I25.10 - Atherosclerotic heart disease of [place] coronary artery without angina pectoris Category: Medical Plan: Continue statin therapy. Ideally LDL less than 70. Continue Plavix. (3) NICM (nonischemic cardiomyopathy): Code(s): I42.8 - Other cardiomyopathies Category: Medical Plan: 10/27/2024-echo study showed improved EF 45-50%, anterior lateral wall, basal anterior and mid anterior segments akinetic, mid anterior septal dyskinetic, no apical thrombus. Clinically euvolemic this is it. Continue with metoprolol, furosemide, Entresto, Jardiance. (4) Aortic stenosis: Code(s): I35.0 - Nonrheumatic aortic (valve) stenosis Category: Medical Plan: 10/25/2024- echo showed moderate aortic disease, mean gradient 18 mm Hg, aortic valve area 1.01 cm2. We will monitor this on echo periodically. (5) S/P triple vessel bypass: Comment: HEATH to LAD, SVG to distal RCA and SVG to left PDA -approximately 1999 Code(s): Z95.1 - Presence of aortocoronary bypass graft Category: Surgical Plan: As above (6) Essential hypertension: Code(s): I10 - Essential (primary) hypertension Category: Medical Plan: Blood pressure is well-controlled today. States stable at home as well. Advised patient to monitor blood pressures at home and keep a log. Patient will follow-up with us in 1 month. Advised patient to seek ER care in case of exertional chest pain not resolved with rest. This note was generated using voice recognition software. While every effort has been made to ensure accuracy and proper logistics center manager, there may be occasional errors that could affect the content or meaning of the described symptoms. Medications: New isosorbide mononitrate ER 30 mg PO DAILY 90 tabs 1RF spironolactone (Aldactone) 12.5 mg (1/2 x 25 mg) PO DAILY 90 tabs 3RF Coding Level of Care Code Est Pt Level 4 (06522) Diagnoses Chest pain R07.9 CAD (coronary artery disease) I25.10 NICM (nonischemic cardiomyopathy) I42.8 Aortic stenosis I35.0 S/P triple vessel bypass Z95.1 Essential hypertension I10 Time Spent (min) 33 Comment Time spent in reviewing the chart, test results, assessment, counseling and documentation.
== END 2025-01-13 15:45 | disposition home or self-care (01) ==
LOC: HO.HCS 14:25
PROVIDERS: PCP Internal Medicine
DX: R07.9 Chest pain, unspecified (principal); I25.10 Atherosclerotic heart disease of native coronary artery without angina pectoris; I42.8 Other cardiomyopathies; I35.0 Nonrheumatic aortic (valve) stenosis; Z95.1 Presence of aortocoronary bypass graft; I10 Essential (primary) hypertension
CPT/HCPCS: 99214

== ENCOUNTER → 2025-01-13 14:25 | Outpatient (BNVA) | payer OTHER, SELFPAY | PROVIDERS: PCP Internal Medicine | DX: R07.9 Chest pain, unspecified (principal); I25.10 Atherosclerotic heart disease of native coronary artery without angina pectoris; I42.8 Other cardiomyopathies; I35.0 Nonrheumatic aortic (valve) stenosis; I10 Essential (primary) hypertension; Z95.1 Presence of aortocoronary bypass graft | CPT/HCPCS: 99212 ==

== ENCOUNTER 2025-03-04 13:48 | Outpatient (AMB) | payer OTHER, SELFPAY ==
--- NOTE | 2025-03-04 14:01 | MHC.OFFVIS ---
Vital Signs 03/04/25 14:05 Height 5 ft 9 in Weight 141 lb 15.643 oz BMI 21.0 BP 100/59 L Blood Pressure Location Lt brachial Position Sitting Pulse 59 Pulse Source Pulse Oximeter Intake Visit Reasons: 1 mth f/ho-ozf-gdumlx/clearance Dr. 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 Patient was previously seen for chest pain for which he was recently started on Imdur. Today the patient reports feeling much better and reports intermittent chest pain only after eating. Patient is otherwise denying any cardiac symptoms such as exertional chest pain, shortness of breath, palpitations, dizziness, fatigue, orthopnea, PND, leg edema, presyncope, or syncope. Patient reports that he has been compliant with all his medications. Patient is also requesting clearance for cataract surgery coming up in March. 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 Review of Systems Const Denies chills, Denies fatigue, Denies fever(s), Denies frequent falls, Denies weakness, Denies weight gain and Denies weight loss ENT Denies dizziness Card Denies chest pain, Denies leg edema, Denies lightheadedness, Denies palpitations, Denies dyspnea and Denies dyspnea on exertion Resp Denies cough, Denies dyspnea and Denies dyspnea on exertion GI Denies hematochezia Musc Denies abnormal gait, Denies muscle weakness, Denies numbness, Denies radiating pain into limb and Denies tingling Neuro Denies abnormal gait, Denies dizziness, Denies frequent falls, Denies numbness, Denies tingling and Denies weakness Endo Denies fatigue and Denies palpitations Physical Exam Vital Signs: Last Vital Signs Pulse 59 03/04/25 14:05 BP 100/59 L 03/04/25 14:05 BMI result Body Mass Index 21.0 Const General: cooperative, healthy appearing, comfortable and no acute distress Orientation/consciousness: patient oriented x3 HEENT Head: Yes normal to inspection Neck Neck: Yes normal visual inspection, Yes trachea midline and Yes supple Chest Chest palpation & inspection: normal inspection of the chest Resp Effort & Inspection: normal respiratory effort Auscultation: clear to auscultation bilaterally, no crackles, no rales, no rhonchi and no wheezes Cardio Jugular venous distension: no JVD Palpation: normal PMI Rate: regular rate Rhythm: regular rhythm Heart sounds: S1 normal heart sound present, S2 normal heart sound present, no click, no gallops, Murmur heart sound present systolic at the left sternal border and at the right sternal border and no rubs Peripheral pulses: Peripheral pulses 2+ throughout GI Inspection: Yes normal to inspection Palpation (GI): Soft to palpation Auscultation: normal bowel sounds Skin General skin exam: no rashes or lesions noted Neuro General: patient oriented x3 Extrem General: Yes normal to inspection, No no pedal edema and No calf tenderness Psych Appearance: grossly normal Mental Status: mental status grossly normal Speech and movement: Normal speech and movement present Assessment & Plan Assessment & Plan (1) CAD (coronary artery disease): Code(s): I25.10 - Atherosclerotic heart disease of bois forte coronary artery without angina pectoris Category: Medical Plan: Cardiac catheterization on 07/29/2024 showed occluded left main, proximal LAD, left circumflex and patent HEATH to LAD, RCA with moderate diffuse disease. SVG graft from aorta right to the distal RCA, SVG to the left PDA, 60-70% stenosis. Continue Plavix therapy. Patient is not able to tolerate aspirin due to abdominal discomfort. Continue Imdur therapy. Continue statin therapy. LDL goal less than 70. (2) NICM (nonischemic cardiomyopathy): Code(s): I42.8 - Other cardiomyopathies Category: Medical Plan: Clinically euvolemic today. Continue with metoprolol, furosemide, Entresto, Jardiance, Imdur, and spironolactone. (3) Aortic stenosis: Code(s): I35.0 - Nonrheumatic aortic (valve) stenosis Category: Medical Plan: 10/25/2024-echo showed moderate aortic disease, mean gradient 18 mmHg, aortic valve area 1.01 cm2. We will monitor this with the echo. (4) S/P triple vessel bypass: Comment: HEATH to LAD, SVG to distal RCA and SVG to left PDA -approximately 1999 Code(s): Z95.1 - Presence of aortocoronary bypass graft Category: Surgical Plan: As above. (5) Essential hypertension: Code(s): I10 - Essential (primary) hypertension Category: Medical Plan: Blood pressure today is on the low-normal. States stable at home as well. Advised patient to monitor blood pressures at home and keep a log of it. Ideally goal less than 130/80. (6) Preop cardiovascular exam: Code(s): Z01.810 - Encounter for preprocedural cardiovascular examination Category: Medical Plan: Patient has a an upcoming bilateral cataract surgery in the month of March. Patient can proceed with the procedure with the consideration that patient is at a intermediate cardiac risk. Patient will follow-up in [address] Serna. In the interim, patient will call us with any concerns or change in symptoms. Advised patient to seek ER care in case of exertional chest pain not resolved with rest. This note was generated using voice recognition software. While every effort has been made to ensure accuracy and proper box cutter, there may be occasional errors that could affect the content or meaning of the described symptoms. Coding Level of Care Code Est Pt Level 4 (77865) Complex EM visit Add On G2211 Diagnoses CAD (coronary artery disease) I25.10 NICM (nonischemic cardiomyopathy) I42.8 Aortic stenosis I35.0 S/P triple vessel bypass Z95.1 Essential hypertension I10 Preop cardiovascular exam Z01.810 Time Spent (min) 34 Comment Time spent in reviewing the chart, test results, assessment, counseling and documentation.
[2025-03-04 14:05] VITALS: BP 100/59; PULSE 59; BMI 21.0
== END 2025-03-04 14:52 | disposition home or self-care (01) ==
LOC: HO.HCS 13:49
PROVIDERS: PCP Internal Medicine
DX: I25.10 Atherosclerotic heart disease of native coronary artery without angina pectoris (principal); I42.8 Other cardiomyopathies; I35.0 Nonrheumatic aortic (valve) stenosis; Z95.1 Presence of aortocoronary bypass graft; I10 Essential (primary) hypertension; Z01.810 Encounter for preprocedural cardiovascular examination
CPT/HCPCS: 99214; G2211

== ENCOUNTER → 2025-03-04 13:48 | Outpatient (BNVA) | payer OTHER, SELFPAY | PROVIDERS: PCP Internal Medicine | DX: Z01.810 Encounter for preprocedural cardiovascular examination (principal); I25.10 Atherosclerotic heart disease of native coronary artery without angina pectoris; I42.8 Other cardiomyopathies; I35.0 Nonrheumatic aortic (valve) stenosis; I10 Essential (primary) hypertension; Z95.1 Presence of aortocoronary bypass graft | CPT/HCPCS: 99212 ==

== ENCOUNTER 2025-05-09 14:12 | Outpatient (AMB) | payer OTHER, SELFPAY ==
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
[2025-05-09 14:16] VITALS: BP 82/52; PULSE 68; BMI 21.1
== END 2025-05-09 14:49 | disposition home or self-care (01) ==
LOC: HO.HCS 14:13
PROVIDERS: PCP Internal Medicine; Visit Provider Internal Medicine Cardiovascular Disease
DX: I35.0 Nonrheumatic aortic (valve) stenosis (principal); I42.8 Other cardiomyopathies
CPT/HCPCS: 99214; G2211

== ENCOUNTER → 2025-05-09 14:12 | Outpatient (REF) | payer OTHER, SELFPAY ==
--- NOTE | 2025-05-09 15:18 | CA_ITS ---
Transthoracic Echocardiogram Patient (Last, First, Middle): Bryan Noble H Gender: Male Date of : 1940 Age: 84 Procedure Date: 05/09/2025 Procedure Type: Transthoracic Echocardiogram Location: OP Height: 177.8 cm Weight: 63.5 kg BSA: 1.79 m2 Heart Rate: bpm BP: 116 / 62 mmHg Insurance Coder: Referring MD: Maya Bryant GRAZING EXAMINER-C Symptoms: I35.0 - Nonrheumatic aortic (valve) stenosis Study Quality: Adequate w Definity ECG Rhythm: Sinus Conclusions: - Normal left ventricular cavity size. There is moderately increased left ventricular wall thickness. The left ventricular systolic function is moderately decreased. The visually estimated ejection fraction is between 30-35%. - Elevated filling pressures. - There is moderate to severe aortic valve stenosis. The peak aortic velocity is 2.76 m/s. The mean gradient is 16 mmHg. The aortic valve area is 1.06 cm2. Findings Procedure Information Contrast agent, definity, is being given per protocol without apparent complications. Left Ventricle Normal left ventricular cavity size. There is moderately increased left ventricular wall thickness. The left ventricular systolic function is moderately decreased. The visually estimated ejection fraction is between 30 35%. There is evidence of regional wall motion abnormalities. Abnormal diastolic function is noted. Spectral Doppler is indicative of a restrictive filling pattern. Elevated filling pressures. Wall Motion Rest Echo Findings The apex segment is hypokinetic. The apical anterior and mid anterior segments are akinetic. The mid anteroseptal segment is dyskinetic. Right Ventricle Mildly increased right ventricular cavity size. There is normal right ventricular systolic function. Atria The left atrium is likely dilated. The right atrium is likely dilated. Aortic Valve There is severe calcification of the aortic valve. There is moderate to severe aortic valve stenosis. The peak aortic velocity is 2.76 m/s. The mean gradient is 16 mmHg. The aortic valve area is 1.06 cm2. There is mild aortic valve regurgitation. Mitral Valve The mitral valve appears normal. There is mild mitral valve regurgitation. There is no mitral valve stenosis. Pulmonic Valve The pulmonic valve is normal. There is trace pulmonic valve regurgitation. Tricuspid Valve Normal tricuspid valve structure. There is mild tricuspid valve regurgitation. Normal right atrial pressure. Mild pulmonary hypertension is present. Great Vessels All visible segments of the aorta are normal in size. Venous The inferior vena cava is normal in size and collapses greater than 50% with inspiration. Pericardium/Pleural There is no evidence of pericardial effusion. Prior Study Comparison Changes noted compared to prior study dated: 10/27/2024. EF 30-35%, moderate to severe . Measurements 2D Linear Measurements IVSd: 1.35 0.6-0.9/0.6-1.0 cm LVIDd: 4.71 3.9-5.3/4.2-5.9 cm LVIDd Index: 2.63 2.4-3.2/2.2-3.1 cm/m2 LVIDs: 3.88 2.0-3.6 cm LVPWd: 1.36 0.7-1.1 cm Ao Root: 2.80 2.1-3.5 cm LA Diam: 3.70 2.7-3.8/3.0-4.0 cm LAIDs Index: 2.07 1.5-2.3 cm/m2 LV Mass: 316.19 67-162/88-224 g LV Mass Index: 176.64 43-95/49-115 g/m2 LVOT Diam: 2.00 3.0+(-)1.3 cm 2D Systolic Function EF 4C: 33.60 >55% EF 2C: 28.60 >55% EF BiP: 31.40 >55% Mitral Valve MV Pk E: 1.22 MV PK A: 0.30 MV Decel Time: 133.00 E/A: 4.10 E'Lateral: 3.81 E'Medial: 3.70 E/E' Med: 33.00 E/E' Lat: 32.00 PHT: 39.00 MVA PHT: 5.64 Decel Pickens: 9.16 Aortic Valve AoV Pk Chinmay: 2.76 AoV Mn Chinmay: 1.85 AoV VTI: 0.61 AoV Pk Grad: 30.00 Aov Mn Grad: 16.00 JERICHO Cont.VTI: 1.06 AI Pk Chinmay: 3.43 AI [place]: 3.08 LVOT LVOT Pk Chinmay: 0.74 LVOT Mn Chinmay: 0.46 LVOT VTI: 0.21 LVOT Pk Grad: 2.00 LVOT Mn Grad: 1.00 LVOT Diam: 2.00 LVOT Area: 3.14 Diastolic Function MV Pk E: 1.22 MV Pk A: 0.30 E/A: 4.10 E'Medial: 3.70 E/E' Med: 33.00 E' Laterial: 3.81 E/E' Lat: 32.00 Right Ventricle TAPSE (mm): 17.00 TVS' Chinmay: 8.00 Tricuspid Valve TR Pk Chinmay: 2.77 TR Pk Grad: 31.00 RA Press: 3.00 RVSP: 34.00 Great Vessels Aorta Ao Root-2D: 2.80 2.0-3.7 cm Ao Asc: 3.60 2.1-3.4 cm Pulmonary Valve PV Pk Chinmay: 0.76 Peak PV Grad: 2.00 Updated in Other Vendor System with Status of Final Yovany Serna MD electronically signed on 05/09/2025 10:08:33 PM with status of Final
[2025-05-09 16:03] LABS: Hematocrit 30.7 % (42.0-52.0); Hemoglobin 9.9 g/dl (14.0-18.0); Mean Corpuscular HGB Conc 32.2 g/dl (31.0-36.0); Mean Corpuscular Hemoglobin 30.5 pg (27.0-33.0); Mean Corpuscular Volume 94.5 fL (80.0-98.0); Mean Platelet Volume 11.3 fL (9.4-12.4); Platelet Count 179 X10*3/uL (160-400); Red Blood Count 3.25 X10*6/uL (4.60-5.80); Red Cell Distribution Width 13.2 % (11.0-16.0)
[2025-05-09 16:04] LABS: WBC ABN SCTR FOR CBC 1
[2025-05-09 16:29] LABS: B Type Natriuretic Peptide 1089 pg/mL (<100)
[2025-05-09 16:30] LABS: Anion Gap 11 (12-20); Blood Urea Nitrogen 20 mg/dL (9-16); Calcium 8.9 mg/dL (8.4-10.2); Carbon Dioxide 26 mmol/L (22-29); Chloride 104 mmol/L (96-108); Estimated Glomerular Filt Rate 52; Glucose Random 221 mg/dL (60-115); Iron 79 mcg/dL (45-160); Percent Iron Saturation 19 % (15-50); Sodium 137 mmol/L (135-145); Total Iron Binding Capacity 418 mcg/dL (228-428); Unsaturated Iron Binding 339 ug/dL
[2025-05-09 16:35] LABS: Atypical Lymphs Percent Manual 1 % (0-6); Eosinophils Percent Manual 3 % (0-4); Lymphocytes Percent Manual 28 % (20-40); Monocytes Percent Manual 17 % (2-11); Neutrophils Percent Manual 51 % (45-73)
[2025-05-09 16:36] LABS: Ovalocytes 1+ (5-14) /OIF; RBC Morphology NOTED; Schistocytes 1+ (0-2) /OIF
[2025-05-09 16:37] LABS: Acanthocytes 1+ (0-2) /OIF; Burr Cells 2+ (3-5) /OIF
[2025-05-09 16:38] LABS: Band Neutrophils Percent 0 % (3-5); Platelet Estimate NORMAL (NORMAL); Platelet Morphology Comment NORMAL
[2025-05-09 16:39] LABS: Eosinophils Absolute Manual 0.1 X10*3/uL (0.0-0.4); Lymphocytes Absolute Manual 0.8 X10*3/uL (1.2-4.9); Monocytes Absolute Manual 0.5 X10*3/uL (0.1-1.2); Neutrophils Absolute Manual 1.5 X10*3/uL (2.0-8.3)
[2025-05-09 16:48] LABS: Ferritin 23 ng/mL (20-250)
== END ==
LOC: HO.CARD 14:12
PROVIDERS: PCP Nurse Practitioner Family; Visit Provider Internal Medicine Cardiovascular Disease
DX: I35.0 Nonrheumatic aortic (valve) stenosis (principal); I42.8 Other cardiomyopathies
CPT/HCPCS: 36415; 80048; 82728; 83540; 83880; 85007; 85025; 85027; 93306; 99212; Q9957

== ENCOUNTER → 2025-05-12 23:59 | Outpatient (BNV) | payer OTHER, SELFPAY | PROVIDERS: PCP Nurse Practitioner Family; Visit Provider Internal Medicine Cardiovascular Disease | DX: I50.20 Unspecified systolic (congestive) heart failure (principal); I20.89 Other forms of angina pectoris; R07.9 Chest pain, unspecified | CPT/HCPCS: 93461; 99152 ==

== ENCOUNTER 2025-05-27 13:12 | Outpatient (AMB) | payer OTHER, SELFPAY ==
--- NOTE | 2025-05-27 13:18 | A.OFFVIS_ITS ---
Intake Visit Reasons: bladder Mass Intake Note: Patient is present for BLADDER MASS Urology Medication:NONE Antibiotic Allergy:NONE Blood Thinner:NONE Pitching Coach Required: No Allergies No Known Allergies Allergy (Verified 05/27/25 13:19) HPI Comments Details: Luis is a pleasant male. Accompanied by his daughter. He is a patient of . 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 Plan TURBT with single dose chemotherapy [facility]LY [facility] Medical History Chest pain Cardiac LV ejection fraction 30-35% High blood pressure Murmur, cardiac Surgical History S/P cardiac catheterization History of open heart surgery S/P triple vessel bypass Family History Father Heart attack Social History Alcohol intake: never Patient Tobacco Use Status: Never used Tobacco Current occupational status: employed 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 Review of Systems Const Denies chills and Denies fever(s) Card Reports no additional complaints and Denies syncope Resp Denies cough GI Denies abdominal pain and Denies heartburn Reports as per HPI and Denies change in libido Neuro Denies syncope Psych Denies change in libido Endo Denies change in libido Physical Exam Const General: cooperative, healthy appearing, comfortable and no acute distress Orientation/consciousness: patient oriented x3 HEENT Face and sinus: Yes normal facial exam Mouth: moist mucous membranes Neck Neck: Yes normal visual inspection, Yes full ROM and Yes trachea midline Chest Chest palpation & inspection: normal inspection of the chest Resp Effort & Inspection: normal respiratory effort, able to speak in complete sentences and no respiratory distress GI Inspection: Yes normal to inspection Back/Spine/Pelvis Cervical Spine: normal cervical lordosis Thoracic/Lumbar Spine: thoracic and lumbar spine normal to inspection Skin General skin exam: no rashes or lesions noted Neuro General: patient oriented x3, gait normal, tone normal and moves all extremities Extrem General: Yes normal to inspection and Yes capillary refill normal Results AMB Urinalysis, Automated UA Leukoctes 0 Ana/uL Last Edit by MARISOL Miranda on 05/27/25 13:28 UA Nitrite Negative Last Edit by Rosanna Valdez [facility] on 05/27/25 13:28 UA Urobilinogen 0.2 mg/dL Last Edit by Rosanna Valdez [facility] on 05/27/25 13:2 8 UA Protein 30 mg/dL Last Edit by Rosanna Valdez [facility] on 05/27/25 13:28 UA pH 6.0 Last Edit by Rosanna Valdez [facility] on 05/27/25 13:28 UA Blood 25 Benjamín/uL Last Edit by Rosanna Valdez [facility] on 05/27/25 13:28 UA Specific Provencal 1.010 Last Edit by Rosanna Valdez [facility] on 05/27/25 13: 28 UA Ketone Negative Last Edit by Rosanna Valdez [facility] on 05/27/25 13:28 UA Bilirubin 0 mg/dL Last Edit by Rosanna Valdez [facility] on 05/27/25 13:28 UA Glucose 1000 mg/dL Last Edit by Rosanna Valdez [facility] on 05/27/25 13:28 Results Reviewed Results Reviewed: Laboratory Last Values Urine pH (Auto) 6.0 05/27/25 13:27 Specific Provencal (Auto) 1.010 05/27/25 13:27 Urine Protein (Auto) 30 mg/dL 05/27/25 13:27 Glucose (UA)(Auto) 1000 mg/dL 05/27/25 13:27 Urine Ketones (Auto) Negative 05/27/25 13:27 Urine Blood (Auto) 25 Benjamín/uL 05/27/25 13:27 Urine Nitrite (Auto) Negative 05/27/25 13:27 Urine Bilirubin (Auto) 0 mg/dL 05/27/25 13:27 Urine Urobilinogen (Auto) 0.2 mg/dL 05/27/25 13:27 Leukocyte Esterase (Auto) 0 Ana/uL 05/27/25 13:27 Assessment & Plan Assessment & Plan (1) Bladder mass: Code(s): N32.89 - Other specified disorders of bladder Category: Medical Plan Bladder immunotherapy Bladder immuno/chemotherapy was discussed today. These medications are used to create an immune reaction against bladder cancer. The intention is to destroy any tumor cells left on the bladder surface. Since BCG and gemcitabine involved immunostimulation they are not indicated in situations where there is immune weakness. Medications are placed directly into the bladder. It should be held for one to 2 hours. The toilet should be disinfected with a cap full of household bleach prior to urination. Side effects from BCG and gemcitabine generally include mucosa-related changes such as urinary urgency and/or frequency, and hematuria BCG may also invoke an infection type response. An elevated temperature may be indicative of more serious issues and should be reported to the Dr. The intention with bladder immunotherapy is to reduce the frequency of bladder cancer recurrence by 50%. Availability of BCG is highly variable. There is a single manufacture who has had difficulty with quality assurance group leader since 2016. Multiple protocols are available - mitomycin-C for alkalinization - 40mg/200mg in 40cc NSal - A Randomized Clinical Trial of Intravesical Instillation of Mitomycin-C and Combination of Mitomycin-C and Cytarabine (Sandra-C) in Non-Muscle Invasive Bladder Cancer - Raoul Zepeda BJU Int. 2021;129(4):534-541. 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 Crossref DOI link:? https://doi.org/10.1200/JCO.2023.41.6_suppl.507 ) Will undergo - TURBT with mitomycin-C plus cytarabine Orders: Orders AMB Urinalysis Automated Today Z13.9 - Encounter for screening, unspecified Patient Instructions: This note is constructed using voice recognition software. While every effort has been made to ensure accuracy reporting specialist errors may have been included. Imaging studies, laboratory and physical exam results were discussed and reviewed in detail. No major barriers to patient understanding were identified. An opportunity to ask questions regarding the treatment plan was provided. All questions were answered. The patient expressed understanding and agreement with the above treatment plan. The patient is aware they should contact our office by phone for worsening of their current condition or the appearance of new urologic symptoms. Compliance is encouraged with any medications and followup testing that is ordered. It is a privilege to participate in the urologic care of your patient. If you have any questions or concerns regarding treatment for the above conditions, or other urologic issues, please do not hesitate to contact me. The office telephone contact is [phone]. Sincerely, Dr Jaquan Aguilar MD, [facility] - Urology Compassionate Specialist Care for the Genitourinary System Coding Level of Care Code New Pt Level 4 (77436) Diagnoses Bladder mass N32.89
== END 2025-05-27 14:37 | disposition home or self-care (01) ==
LOC: HO.HUSH 13:13
PROVIDERS: PCP Nurse Practitioner Family; Visit Provider Urology
DX: Z13.9 Encounter for screening, unspecified (principal); N32.89 Other specified disorders of bladder
CPT/HCPCS: 99204

== ENCOUNTER → 2025-05-27 13:12 | Outpatient (BNVA) | payer OTHER, SELFPAY | PROVIDERS: PCP Nurse Practitioner Family; Visit Provider Urology | DX: N32.89 Other specified disorders of bladder (principal) | CPT/HCPCS: 81003; 99202 ==

== ENCOUNTER 2025-06-09 12:35 | Outpatient (AMB) | payer OTHER, SELFPAY ==
--- NOTE | 2025-06-09 12:46 | A.OFFVIS_ITS ---
Vital Signs 06/09/25 12:49 Height 5 ft 9 in Weight 138 lb 0.15 oz BMI 20.4 BP 80/50 L Blood Pressure Location Lt brachial Position Sitting Pulse 60 Pulse Source Monitor Intake Visit Reasons: f/up-per km-leg edema Intake Note: f/up-leg edema Reimbursement Representative Required: No Accompanied by: Daughter Allergies No Known Allergies Allergy (Verified 05/27/25 13:19) Medication List - Last Reconciled 06/10/25 by Yovany Serna MD atorvastatin 40 mg PO DAILY celecoxib 100 mg PO DAILY clopidogrel 75 mg PO DAILY Held on 06/10/25. Instructions: Doctor's Order coQ10 (ubiquinol) (CoQmax Ubiquinol) 200 mg PO DAILY empagliflozin (Jardiance) 10 mg PO DAILY furosemide 40 mg PO BID metoprolol tartrate 25 mg PO BID HPI Comments Details: [age] year gentleman with cardiomyopathy, previous bypass surgery, [id number] aortic valve stenosis and new diagnosis of bladder cancer. We did cardiac catheterization on him and did a TAVR protocol CT so we can have discussion about aortic stenosis but CTA abdomen showed a large mass in the bladder which was quite concerning for cancer. He is seeing Urology for further workup. Also due to [id number] aortic valve stenosis the heart team discussion led to referral for expand trial. He has seeing the coordinator and we will be getting a screening echocardiogram to see if he qualifies for the clinical trial. He is daughter call that he has been experiencing worsening lower extremity edema and his blood pressure continues to be low. He has led to urgent office visit. Bryan continues to have poor appetite and weight loss. He also feels quite weak and deconditioned and gets out of breath easily. 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 Review of Systems Const Denies chills, Denies fatigue, Denies fever(s), Denies frequent falls, Denies weakness, Denies weight gain and Denies weight loss ENT Denies dizziness Card Denies chest pain, Reports leg edema, Denies lightheadedness, Denies palpitations, Denies dyspnea and Denies dyspnea on exertion Resp Denies cough, Denies dyspnea and Denies dyspnea on exertion GI Denies hematochezia Musc Denies abnormal gait, Denies muscle weakness, Denies numbness, Denies radiating pain into limb and Denies tingling Neuro Denies abnormal gait, Denies dizziness, Denies frequent falls, Denies numbness, Denies tingling and Denies weakness Endo Denies fatigue and Denies palpitations Physical Exam Vital Signs: Last Vital Signs Pulse 60 06/09/25 12:49 BP 80/50 L 06/09/25 12:49 BMI result Body Mass Index 20.4 GENERAL APPEARANCE: in no acute distress, frail. NECK: No obvious JVD. SKIN: no suspicious lesions, warm and dry. HEART: Systolic murmur aortic area with preserved 2nd heart sound, regular rate and rhythm. LUNGS: clear to auscultation bilaterally. ABDOMEN: soft, nontender. EXTREMITIES: 1 to 2+ edema at ankles. PERIPHERAL PULSES: equal. NEUROLOGIC: No gross deficits, AAO X 3 Assessment & Plan Assessment & Plan (1) Essential hypertension: Code(s): I10 - Essential (primary) hypertension Category: Medical (2) Cardiac LV ejection fraction 30-35%: Code(s): R94.30 - Abnormal result of cardiovascular function study, unspecified Category: Medical (3) Aortic stenosis: Code(s): I35.0 - Nonrheumatic aortic (valve) stenosis Category: Medical Plan 54-year-old gentleman with complex medical issues including previous bypass surgery, cardiomyopathy with EF 30-35%, [id number] aortic valve stenosis and new diagnosis of bladder cancer. He has low blood pressures and he is unable to tolerate guideline directed medical therapy. His manual blood pressure today in the office was 100/50. I have advised him to stop the isosorbide mononitrate. He is on 40 mg p.o. b.i.d. Lasix. Lungs are clear to auscultation and I do not see any JVD. He has not been eating and has lost significant weight and I think a lot of his edema is also related to poor nutritional status. He is seeing Urology and will be undergoing surgery for bladder cancer removal. I have advised him to focus on his nutrition and drink ensure daily. We will get echocardiography at [facility] to see if he qualifies for EXPAND trial. Continue Jardiance. Plavix is on hold for upcoming bladder surgery. Thank you for allowing me to participate in the care of your patient. Please feel free to contact me if you have any questions. Medications: Discontinued isosorbide mononitrate ER Discontinued Reason: Doctor's Order 30 mg PO DAILY 90 tabs 1RF On Hold clopidogrel Hold Comment: Doctor's Order 75 mg PO DAILY 90 tabs 3RF Coding Level of Care Code Est Pt Level 5 (24922) Diagnoses Essential hypertension I10 Cardiac LV ejection fraction 30-35% R94.30 Aortic stenosis I35.0
[2025-06-09 12:49] VITALS: BP 80/50; PULSE 60; BMI 20.4
== END 2025-06-09 13:29 | disposition home or self-care (01) ==
LOC: HO.HCS 12:35
PROVIDERS: PCP Nurse Practitioner Family; Visit Provider Internal Medicine Cardiovascular Disease
DX: I10 Essential (primary) hypertension (principal); R94.30 Abnormal result of cardiovascular function study, unspecified; I35.0 Nonrheumatic aortic (valve) stenosis
CPT/HCPCS: 99214

== ENCOUNTER → 2025-06-09 12:35 | Outpatient (BNVA) | payer OTHER, SELFPAY | PROVIDERS: PCP Nurse Practitioner Family; Visit Provider Internal Medicine Cardiovascular Disease | DX: I10 Essential (primary) hypertension (principal); R94.30 Abnormal result of cardiovascular function study, unspecified; I35.0 Nonrheumatic aortic (valve) stenosis | CPT/HCPCS: 99212 ==

== ENCOUNTER 2025-07-11 05:49 | Day surgery (SDC) | payer OTHER, SELFPAY ==
[2025-07-07 13:59] VITALS: BMI 20.4
--- NOTE | 2025-07-07 14:19 | HO.ANESPROP2 ---
Documented by User: Jackie Kumar NP 07/07/25 14:37 HPI - Anesthesia Eval Consult details Narrative: 85yo M for TUR Bladder Tumor with Mitomycin and Cytarabine Incidental finding of 4cm bladder tumor during TAVR w/u. Aortic stenosis: moderate to severe aortic valve stenosis. The peak aortic velocity is 2.76 m/s. The mean gradient is 16 mmHg. The aortic valve area is 1.06 cm2. Follows with [facility] Cardiology for , CAD s/p CABG x 3, CMP (EF 30-35%). Last office visit 06/09/25 with reports of worsending LE edema and low BPs - isosorbide d/c'd, continue Lasix 40 BID (Lungs clear, no JVD). Plavix on hold for uro. Case reviewed with [facility] Active Problems Active Problems: All Active Problems Bladder mass (Acute) Preop cardiovascular exam (Acute) Chest pain (Acute) CAD (coronary artery disease) (Acute) NICM (nonischemic cardiomyopathy) (Acute) Aortic stenosis (Acute) Syncope (Acute) Abnormal stress test (Acute) Essential hypertension (Acute) Stable angina (Acute) Carpal tunnel syndrome of left wrist (Acute) Carpal tunnel syndrome of right wrist (Acute) Cardiac LV ejection fraction 30-35% (Acute) S/P cardiac catheterization (Acute 05/12/25) S/P triple vessel bypass (Acute) Past Medical History Medical History (Updated 07/11/25 @ 07:33 by Melina Avila [facility]) Chest pain Cardiac LV ejection fraction 30-35% High blood pressure Murmur, cardiac Family History Family History Father Heart attack Surgical History Surgical History S/P cardiac catheterization (05/12/25) History of open heart surgery S/P triple vessel bypass Social History Social History Alcohol intake: never Patient Tobacco Use Status: Never used Tobacco e-Cigarette/Vaping Use: Never Used Use of substances other than those prescribed or required for medical reasons: No Have you been hit, kicked, punched, or otherwise hurt by someone within the past year? 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 Meds Allergies Allergy/AdvReac Type Severity Reaction Status Date / Time No Known Allergies Allergy Verified 07/11/25 06:16 Home Medications ?Medication ?Instructions ?Recorded ?Confirmed ?Last Taken ?Type coQ10 (ubiquinol) 200 mg capsule 200 mg PO DAILY 09/24/23 07/11/25 Unknown History (CoQmax Ubiquinol) atorvastatin 40 mg tablet 40 mg PO DAILY 08/12/24 07/11/25 Unknown History celecoxib 100 mg capsule 100 mg PO DAILY 01/13/25 07/11/25 07/10/25 History furosemide 20 mg tablet 40 mg PO BID 06/10/25 07/11/25 Unknown History Exam Height,Weight and Vital Signs: Height 5 ft 9 in Weight 62.6 kg Pertinent Lab Results Pertinent Lab Results: Laboratory Tests 05/09/25 15:26 WBC 3.0 L Hgb 9.9 L Hct 30.7 L Plt Count 179 Sodium 137 Potassium 4.0 Chloride 104 Carbon Dioxide 26 BUN 20 H Creatinine 1.32 Narrative Narrative: EKG 05/2025 SR with 1st deg AV block @ 60 LVH with repol abn ECHO 05/2025 Conclusions: - Normal left ventricular cavity size. There is moderately increased left ventricular wall thickness. The left ventricular systolic function is moderately decreased. The visually estimated ejection fraction is between 30-35%. - Elevated filling pressures. - There is moderate to severe aortic valve stenosis. The peak aortic velocity is 2.76 m/s. The mean gradient is 16 mmHg. The aortic valve area is 1.06 cm2. Cardiac cath 05/2025 Assessment and Plan Assessment Anesthesia Assessment: Chart Reviewed Documented by User: Francisco Higuera MD 07/11/25 07:46 [facility] Past Medical History Medical History (Updated 07/11/25 @ 07:33 by Melina Avila [facility]) Chest pain Cardiac LV ejection fraction 30-35% High blood pressure Murmur, cardiac Narrative: Echo from May, reviewed. Family History Family History Father Heart attack Family history of problems with anesthesia: No Surgical History Surgical History S/P cardiac catheterization (05/12/25) History of open heart surgery S/P triple vessel bypass History of Problems with Anesthesia: No Social History Social History Alcohol intake: never Patient Tobacco Use Status: Never used Tobacco e-Cigarette/Vaping Use: Never Used Use of substances other than those prescribed or required for medical reasons: No Have you been hit, kicked, punched, or otherwise hurt by someone within the past year? 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 [employer] Allergies Allergy/AdvReac Type Severity Reaction Status Date / Time No Known Allergies Allergy Verified 07/11/25 06:16 Home Medications ?Medication ?Instructions ?Recorded ?Confirmed ?Last Taken ?Type coQ10 (ubiquinol) 200 mg capsule 200 mg PO DAILY 09/24/23 07/11/25 Unknown History (CoQmax Ubiquinol) atorvastatin 40 mg tablet 40 mg PO DAILY 08/12/24 07/11/25 Unknown History celecoxib 100 mg capsule 100 mg PO DAILY 01/13/25 07/11/25 07/10/25 History furosemide 20 mg tablet 40 mg PO BID 06/10/25 07/11/25 Unknown History Exam Airway Mallampati Class: II TM Dist: >3cm Neck ROM: Full Loose/Missing/Broken Teeth: Yes, Upper and Lower Heart: see above. Brisk carotid upstroke Lungs: ok Assessment and Plan Assessment Anesthesia Assessment: Anesthesia Plan Discussed Final Anesthetic Review Family History of Problems with Anesthesia: No History of Problems with Anesthesia: No NPO: Yes ASA Class: IV Final Preanesthetic Review: No Changes in Pt Med Stat, Meds/Allgs Chart Reviewed, Consent Obtained/Reviewed and Anes Risks/Benef Reviewed Patient Risk: High Procedure Risk: Low Anesthetic Plan Anesthetic Plan: GA and Agree w/ Assess. and Plan Disposition: Standard PACU
[2025-07-11] VITALS (12 sets, daily range): BP systolic 91–114; BP diastolic 40–57; PULSE 49–59; RESP 14–18; TEMP 36.1; O2SAT 94–98; BMI 19.9
[2025-07-11] MEDS: Lactated Ringers 1,000 ML 50 ML IVCONT (06:32)
--- NOTE | 2025-07-11 07:29 | P.HPSUR_ITS ---
Pre-Procedural Eval Section A - 24 Hr Update-Section A only Date of Service: 07/11/25 The patient is an INPATIENT: No Changes since office visit: No Cold of Flu in the past 2 weeks, No New Medical Problems, No Changes in Medication and No Patient answered all questions The patient has been examined within 24 hours of the surgical procedure. The History & Physical has been completed within 30 days and I have reviewed it.: Yes Section B - Complete if H&P > 30 days Chief Complaint: Other specified disorders of bladder Details of Present Illness: Superficial bladder cancer Relevant Family History (Specify if Yes): No Relevant Social History: None Present Medications: see Short Stay Collaborative assessment Medical History: No relevant PMH History of Previous Operations: No relevant previous surgery Allergies: Allergies Allergy/AdvReac Type Severity Reaction Status Date / Time No Known Allergies Allergy Verified 07/11/25 06:16 Review of Systems Sugical H&P ROS: Negative: Constitution, Cardiovascular, Respiratory, Neurological, Psychiatric, Hem-Onc, Allergic/Immunologic, Gastrointestinal, Genitourinary, Musculoskeletal, Integumentary, Endocrine and Ey es/Ears/Nose/Throat Exam Surgical H&P Exam: Normal: HEENT, Normal: Heart, Normal: Lungs, Normal: Extremities, Normal: Abdomen, Normal: Skin and Normal: Neurological Plan Diagnosis/Plan: Unchanged (TUR bladder lesion with immunotherapy) I have reviewed the history and physical and performed a pertinent physical examination on my patient. No changes have occurred unless specified. Time Spent With Patient Time: Total time managing care of this patient today ____ minutes.
--- NOTE | 2025-07-11 09:09 | W.PM.OPN ---
Operative Note Operative Note Date of Service: 07/11/25 Narrative: PreOperative Diagnosis: bladder cancer Post Operative Diagnosis: bladder cancer - multiple ranging from 1cm to 8 cm, location Posterior wall Procedure: TURBT - extensive and with mitomycin-C and cytarabine installation Surgeon: Dr Jaquan Aguilar Anesthesia: general Indications for procedure: Presentation with hematuria. Cystoscopy in office with posterior wall lesion Procedure: After informed consent was verified the patient was brought to the operating room and placed in a supine position. Anesthesia was administered per protocol. The patient was placed in a modified dorsal lithotomy position and prepped and draped in a sterile fashion. Safety pause time-out was performed. Antibiotics were confirmed. A 26 Swedish continuous flow resectoscope was inserted per urethra. The visual obturator was used in order to minimize potential for urethral damage. Bladder was examined. Extensive superficial bladder cancer throughout the posterior wall. Numerous cellules with grade 2/3 trabeculation. Within numerous posterior cellules there was superficial bladder cancer. Cancer was primary located throughout the posterior wall mid to upper and running across the entire posterior aspect. Bipolar resection was performed. Starting with tumor at the left edge superiorly resection was performed extensively throughout the posterior surface of the bladder. Great care was taken to remove superficial bladder cancer within large cellules. This did require resection through to deep muscle and fat. Resection time was 100% longer than typical a proximally 40 minutes. The bladder was emptied and irrigated multiple times. Area was re-examined resection and fulguration was performed. Fulguration of a 1 cm margin around all resected areas was performed. At the completion of the procedure the bladder was irrigated. The cystoscope was removed. A [address] Rocha catheter was inserted into the bladder. 10 cc was placed in the balloon. Mitomycin-C with cytarabine in 40 cc normal saline was instilled into the bladder. The flow from the catheter was left clamped. The inflow to the catheter was attached to a 3 L normal saline bag. The patient tolerated the procedure well. They were extubated in the operating room and transferred in stable condition to the recovery area. Chemotherapy will remain in the bladder for 1 hour. At the completion of 1 hour the clamp will be removed. The mitomycin-C and cytarabine will be allowed to egress to the urine collection bag. The 3 L bag of normal saline will be run at maximum rate through the bladder in order to dilute any residual chemotherapy agent. Due to the extensive nature of the resection patient will go home with Rocha catheter Pathology: Extensive resection bladder cancer Drains: Rocha catheter
--- NOTE | 2025-07-11 11:54 | PC.NURSE ---
PATIENT BARROW. PATIENT DOESN'T SEEM TO BE UNDERSTANDING/RETAINING DISCHARGE INFORMATION. THIS RN BROUGHT PATIENT DOWN TO HIS RIDE HOME WHO IS HIS DAUGHTER. PATIENT'S DAUGHTER GIVEN DC INSTRUCTIONS AND TOLD TO CALL DR. WASSERMAN'S OFFICE WITH ANY ISSUES.
== END 2025-07-11 11:32 | disposition home or self-care (01) ==
PROVIDERS: PCP Nurse Practitioner Family; Visit Provider Urology
PROC: 0TBB8ZZ Excision of Bladder, Via Natural or Artificial Opening Endoscopic (ICD-10-PCS; CPT 52240; principal; 2025-07-11 07:30)
DX: C67.4 Malignant neoplasm of posterior wall of bladder (principal); N32.89 Other specified disorders of bladder; I10 Essential (primary) hypertension; R07.9 Chest pain, unspecified; R01.1 Cardiac murmur, unspecified; I25.10 Atherosclerotic heart disease of native coronary artery without angina pectoris; Z95.1 Presence of aortocoronary bypass graft; R60.0 Localized edema; Z79.899 Other long term (current) drug therapy; Z98.890 Other specified postprocedural states
CPT/HCPCS: 52240; 51720; 88307; J0165; J1956; J2003; J2405; J2704; J3010; J9100; J9280

== ENCOUNTER → 2025-07-11 05:49 | Outpatient (BNV) | payer OTHER, SELFPAY | PROVIDERS: PCP Nurse Practitioner Family; Visit Provider Urology | DX: C67.4 Malignant neoplasm of posterior wall of bladder (principal) | CPT/HCPCS: 52240 ==

== ENCOUNTER 2025-07-19 13:09 | Outpatient (REF) | payer OTHER, SELFPAY | END 2025-07-19 13:10 | disposition home or self-care (01) | LOC: HO.LAB 13:09 | PROVIDERS: PCP Nurse Practitioner Family; Visit Provider Urology | DX: C67.9 Malignant neoplasm of bladder, unspecified (principal) | CPT/HCPCS: 51798; 87086 ==

== ENCOUNTER 2025-07-26 13:12 | Outpatient (AMB) | payer OTHER, SELFPAY ==
--- NOTE | 2025-07-26 13:13 | A.OFFVIS_ITS ---
Intake Visit Reasons: TURBT follow up Intake Note: Patient is present for Post-OP Urology Medication:NONE Antibiotic Allergy:NONE Blood Thinner:NONE Train Brake Operator Required: No Accompanied by: Self / Same As Patient Allergies No Known Allergies Allergy (Verified 07/26/25 13:14) HPI Comments Details: Luis is a pleasant male. Accompanied by his daughter. He is a patient of . 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 TURBT 07/25 high-grade T1 extensive muscularis propria present Plan complete 5 weeks induction mitomycin-C with cytarabine [facility] Medical History (Updated 07/26/25 @ 13:49 by Jaquan Aguilar MD) Bladder mass Chest pain Cardiac LV ejection fraction 30-35% High blood pressure Murmur, cardiac Surgical History S/P cardiac catheterization (05/12/25) History of open heart surgery S/P triple vessel bypass Family History Father Heart attack Social History Alcohol intake: never Patient Tobacco Use Status: Never used Tobacco e-Cigarette/Vaping Use: Never Used Current occupational status: employed 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 Review of Systems Const Denies chills and Denies fever(s) Card Reports no additional complaints and Denies syncope Resp Denies cough GI Denies abdominal pain and Denies heartburn Reports as per HPI and Denies change in libido Neuro Denies syncope Psych Denies change in libido Endo Denies change in libido Physical Exam Const General: cooperative, healthy appearing, comfortable and no acute distress Orientation/consciousness: patient oriented x3 HEENT Face and sinus: Yes normal facial exam Mouth: moist mucous membranes Neck Neck: Yes normal visual inspection, Yes full ROM and Yes trachea midline Chest Chest palpation & inspection: normal inspection of the chest Resp Effort & Inspection: normal respiratory effort, able to speak in complete sentences and no respiratory distress GI Inspection: Yes normal to inspection Back/Spine/Pelvis Cervical Spine: normal cervical lordosis Thoracic/Lumbar Spine: thoracic and lumbar spine normal to inspection Skin General skin exam: no rashes or lesions noted Neuro General: patient oriented x3, gait normal, tone normal and moves all extremities Extrem General: Yes normal to inspection and Yes capillary refill normal Results AMB Urinalysis, Automated UA Leukoctes 0 Ana/uL Last Edit by MARISOL Darden on 07/26/25 13:39 UA Nitrite Negative Last Edit by Caroline Garcia [facility] on 07/26/25 13:39 UA Urobilinogen 0.2 mg/dL Last Edit by Caroline Garcia [facility] on 07/26/25 13:3 9 UA Protein 0 mg/dL Last Edit [facility] on 07/26/25 13:39 UA pH 6.0 Last Edit by Caroline Garcia [facility] on 07/26/25 13:39 UA Blood 25 Benjamín/uL Last Edit by Caroline Garcia [facility] on 07/26/25 13:39 UA Specific [place] 1.010 Last Edit by [facility] on 07/26/25 13: 39 UA Ketone Negative Last Edit by Caroline Garcia [facility] on 07/26/25 13:39 UA Bilirubin 0 mg/dL Last Edit by [facility] on 07/26/25 13:39 UA Glucose 1000 mg/dL Last Edit by Caroline Garcia [facility] on 07/26/25 13:39 Assessment & Plan Assessment & Plan (1) Bladder cancer: Comment: T1 high-grade extensive Code(s): C67.9 - Malignant neoplasm of bladder, unspecified Category: Medical Plan Bladder immunotherapy Bladder immuno/chemotherapy was discussed today. These medications are used to create an immune reaction against bladder cancer. The intention is to destroy any tumor cells left on the bladder surface. Since BCG and gemcitabine involved immunostimulation they are not indicated in situations where there is immune weakness. Medications are placed directly into the bladder. It should be held for one to 2 hours. The toilet should be disinfected with a cap full of household bleach prior to urination. Side effects from BCG and gemcitabine generally include mucosa-related changes such as urinary urgency and/or frequency, and hematuria BCG may also invoke an infection type response. An elevated temperature may be indicative of more serious issues and should be reported to the Dr. The intention with bladder immunotherapy is to reduce the frequency of bladder cancer recurrence by 50%. Availability of BCG is highly variable. There is a single manufacture who has had difficulty with aircraft quality control inspector since 2016. Multiple protocols are available - mitomycin-C for alkalinization - 40mg/200mg in 40cc NSal - A Randomized Clinical Trial of Intravesical Instillation of Mitomycin-C and Combination of Mitomycin-C and Cytarabine (Sandra-C) in Non-Muscle Invasive Bladder Cancer - Raoul Zepeda U Int. 2021;129(4):534-541. 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 Crossref DOI link:? https://doi.org/10.1200/JCO.2023.41.6_suppl.507 ) Will undergo - induction mitomycin-C and cytarabine given high-grade nature Orders: Orders AMB Urinalysis Automated Today Z13.9 - Encounter for screening, unspecified Patient Instructions: This note is constructed using voice recognition software. While every effort has been made to ensure accuracy investigator claims errors may have been included. Imaging studies, laboratory and physical exam results were discussed and reviewed in detail. No major barriers to patient understanding were identified. An opportunity to ask questions regarding the treatment plan was provided. All questions were answered. The patient expressed understanding and agreement with the above treatment plan. The patient is aware they should contact our office by phone for worsening of their current condition or the appearance of new urologic symptoms. Compliance is encouraged with any medications and followup testing that is ordered. It is a privilege to participate in the urologic care of your patient. If you have any questions or concerns regarding treatment for the above conditions, or other urologic issues, please do not hesitate to contact me. The office telephone contact is [phone]. Sincerely, Dr Jaquan Aguilar MD, [facility] - Urology Compassionate Specialist Care for the Genitourinary System Coding Level of Care Code Est Pt Level 4 (48317) Complex EM visit Add On G2211 Diagnoses Bladder cancer C67.9
== END 2025-07-26 13:55 | disposition home or self-care (01) ==
LOC: HO.HUSH 13:13
PROVIDERS: PCP Nurse Practitioner Family; Visit Provider Urology
DX: C67.9 Malignant neoplasm of bladder, unspecified (principal); Z13.9 Encounter for screening, unspecified
CPT/HCPCS: 99214; G2211

== ENCOUNTER → 2025-07-26 13:12 | Outpatient (BNVA) | payer OTHER, SELFPAY | PROVIDERS: PCP Nurse Practitioner Family; Visit Provider Urology | DX: C67.9 Malignant neoplasm of bladder, unspecified (principal) | CPT/HCPCS: 81003; 99212 ==

== ENCOUNTER 2025-08-31 14:10 | Outpatient (AMB) | payer OTHER, SELFPAY ==
[2025-08-31 14:12] VITALS: BP 112/50; PULSE 61; BMI 20.3
--- NOTE | 2025-08-31 14:12 | A.OFFVIS_ITS ---
Vital Signs 08/31/25 14:12 Height 5 ft 9 in Weight 137 lb 9.095 oz BMI 20.3 BP 112/50 L Blood Pressure Location Lt brachial Position Sitting Pulse 61 Pulse Source Pulse Oximeter Intake Visit Reasons: 2 mth f/up Reel Fed Printer Required: No Accompanied by: Daughter Allergies No Known Allergies Allergy (Verified 08/31/25 14:16) Medication List - Last Reconciled 08/31/25 by Yovany Serna MD atorvastatin 40 mg PO DAILY celecoxib 100 mg PO DAILY clopidogrel 75 mg PO DAILY Held on 06/10/25. Instructions: Doctor's Order coQ10 (ubiquinol) (CoQmax Ubiquinol) 200 mg PO DAILY empagliflozin 25 mg PO DAILY furosemide (Lasix) 40 mg PO BID metoprolol tartrate 25 mg PO BID HPI Comments Details: 85-year-old gentleman with cardiomyopathy, previous bypass surgery, [id number] aortic valve stenosis and new diagnosis of bladder cancer. We did cardiac catheterization on him and did a TAVR protocol CT so we can have discussion about aortic stenosis but CTA abdomen showed a large mass in the bladder which was quite concerning for cancer. He is seeing Urology for further workup. Also due to [id number] aortic valve stenosis the heart team discussion led to referral for expand trial. He has seeing the coordinator and we will be getting a screening echocardiogram to see if he qualifies for the clinical trial. He is daughter call that he has been experiencing worsening lower extremity edema and his blood pressure continues to be low. He has led to urgent office visit. Bryan continues to have poor appetite and weight loss. He also feels quite weak and deconditioned and gets out of breath easily. 08/31/2025: He is here for follow-up. He underwent successful transcatheter aortic valve replacement from right common femoral artery with a 29 mm Evolut FX +valve on 08/02/2025. Mean gradient after the procedure was 3 mm Hg with trace paravalvular leak. He is here for follow-up after TAVR. He has been feeling great. He is exercising and has no chest tightness or shortness of breath. He is undergoing chemotherapy for bladder cancer which is instilled in his bladder and does not have any systemic side effects. 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 Review of Systems Const Denies daytime sleepiness, Denies difficulty sleeping, Denies snoring, Denies stops breathing during sleep and Denies weakness Card Denies chest pain, Denies rapid heart rate, Denies irregular heart rhythm, Denies claudication, Denies leg edema, Denies lightheadedness, Denies palpitations, Denies dyspnea, Denies dyspnea on exertion, Denies orthopnea, Denies paroxysmal nocturnal dyspnea and Denies slow heart rate Resp Denies cough, Denies dyspnea, Denies dyspnea on exertion and Denies snoring GI Reports no additional complaints, Denies hematochezia, Denies change in stool character and Denies dyspepsia Musc Denies abnormal gait, Denies muscle weakness and Denies numbness Neuro Denies abnormal gait, Denies numbness and Denies weakness Endo Denies palpitations Physical Exam Vital Signs: Last Vital Signs Pulse 61 08/31/25 14:12 BP 112/50 L 08/31/25 14:12 BMI result Body Mass Index 20.3 GENERAL APPEARANCE: in no acute distress. NECK: No obvious JVD. SKIN: no suspicious lesions, warm and dry. HEART: Systolic murmur, regular rate and rhythm. LUNGS: clear to auscultation bilaterally. ABDOMEN: soft, nontender. EXTREMITIES: No edema. PERIPHERAL PULSES: equal. NEUROLOGIC: No gross deficits, AAO X 3 Assessment & Plan Assessment & Plan (1) Essential hypertension: Code(s): I10 - Essential (primary) hypertension Category: Medical (2) Cardiac LV ejection fraction 30-35%: Code(s): R94.30 - Abnormal result of cardiovascular function study, unspecified Category: Medical (3) Aortic stenosis: Code(s): I35.0 - Nonrheumatic aortic (valve) stenosis Category: Medical Plan 85-year-old gentleman with complex medical issues including previous bypass surgery, cardiomyopathy with EF 30-35%, [id number] aortic valve stenosis and bladder cancer. He is status post transcatheter aortic valve replacement with a 29 mm Evolut FX +valve on 08/02/2025. He has done significantly well since then and is exercising and feeling great. Clinically not in heart failure anymore. Blood pressure well controlled. He is on metoprolol tartrate 25 mg twice a day and Lasix 40 mg twice a day. He continues to get local chemo for bladder cancer. Continue same medications at this point. Continue cardiac rehabilitation. We will repeat echocardiography on him in 1 month. Follow-up in 4 months. Thank you for allowing me to participate in the care of your patient. Please feel free to contact me if you have any questions. Medications: New atorvastatin 40 mg PO DAILY 90 tabs 3RF Yovany Serna MD Resumed clopidogrel Replaces aspirin 75 mg PO DAILY 90 tabs 3RF Yovany Serna MD clopidogrel 75 mg PO DAILY 90 tabs 3RF Maya Bryant NP-Ramesh Coding Level of Care Code Est Pt Level 4 (20841) Diagnoses Essential hypertension I10 Cardiac LV ejection fraction 30-35% R94.30 Aortic stenosis I35.0
== END 2025-08-31 14:41 | disposition home or self-care (01) ==
LOC: HO.HCS 14:11
PROVIDERS: PCP Nurse Practitioner Family; Visit Provider Internal Medicine Cardiovascular Disease
DX: I10 Essential (primary) hypertension (principal); R94.30 Abnormal result of cardiovascular function study, unspecified; I35.0 Nonrheumatic aortic (valve) stenosis
CPT/HCPCS: 99214

== ENCOUNTER → 2025-08-31 14:10 | Outpatient (BNVA) | payer OTHER, SELFPAY | PROVIDERS: PCP Nurse Practitioner Family; Visit Provider Internal Medicine Cardiovascular Disease | DX: I10 Essential (primary) hypertension (principal); R94.30 Abnormal result of cardiovascular function study, unspecified; I35.0 Nonrheumatic aortic (valve) stenosis | CPT/HCPCS: 99212 ==

== ENCOUNTER 2025-10-25 11:01 | Outpatient (AMB) | payer OTHER, SELFPAY ==
--- NOTE | 2025-10-25 11:16 | A.OFFVIS_ITS ---
Intake Visit Reasons: Cystoscopy Intake Note: Patient is present for cystoscopy Urology Medication:NONE Antibiotic Allergy:NONE Blood Thinner:NONE Director Employee Communications Required: No Accompanied by: Self / Same As Patient Allergies No Known Allergies Allergy (Verified 08/31/25 14:16) HPI Comments Details: Luis is a pleasant male. Accompanied by his daughter. He is a patient of . He is seen for the following urologic conditions - bladder cancer Here for check cystoscopy Completed 5 weeks induction mitomycin-C with cytarabine in July Slowly healing area of initial resection No secondary sites of bladder cancer seen Bladder cancer - 07/25 TURBT high-grade T1 extensive 08/25 5 weeks induction mitomycin-C with cytarabine 07/25 TURBT high-grade T1 extensive muscularis propria present in resection Re-resection was discussed however at age 85 he is difficult anesthesia and this was deferred in favor of follow-up office cystoscopy following induction immunotherapy Incidental bladder mass on imaging for TAVR 4 cm posterior wall lesion on CT No prior smoking No workplace exposures 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[employer] [facility] Medical History (Updated 07/26/25 @ 13:49 by Jaquan Aguilar MD) Bladder mass Chest pain Cardiac LV ejection fraction 30-35% High blood pressure Murmur, cardiac Surgical History S/P cardiac catheterization (05/12/25) History of open heart surgery S/P triple vessel bypass Family History Father Heart attack Social History Alcohol intake: never Patient Tobacco Use Status: Never used Tobacco e-Cigarette/Vaping Use: Never Used Current occupational status: employed 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 Review of Systems Const Denies chills and Denies fever(s) Card Reports no additional complaints and Denies syncope Resp Denies cough GI Denies abdominal pain and Denies heartburn Reports as per HPI and Denies change in libido Neuro Denies syncope Psych Denies change in libido Endo Denies change in libido Physical Exam Const General: cooperative, healthy appearing, comfortable and no acute distress Orientation/consciousness: patient oriented x3 HEENT Face and sinus: Yes normal facial exam Mouth: moist mucous membranes Neck Neck: Yes normal visual inspection, Yes full ROM and Yes trachea midline Chest Chest palpation & inspection: normal inspection of the chest Resp Effort & Inspection: normal respiratory effort, able to speak in complete sentences and no respiratory distress GI Inspection: Yes normal to inspection Back/Spine/Pelvis Cervical Spine: normal cervical lordosis Thoracic/Lumbar Spine: thoracic and lumbar spine normal to inspection Skin General skin exam: no rashes or lesions noted Neuro General: patient oriented x3, gait normal, tone normal and moves all extremities Extrem General: Yes normal to inspection and Yes capillary refill normal Office Procedures Cystoscopy Consent Discussed risk and benefit or proposed procedure with the patient. Information consent for procedure given to the patient. Discussed technical aspects, risks, benefits and alternatives in full. Addressed all of the patient's questions and concerns regarding the procedure. The patient demonstrated knowledge and understanding. They wish to proceed with this procedure. Preparation The patient was prepped in the usual manner. A nib assembler was present and in the room. Genitalia was prepped with betadine solution in a sterile manner. Lidocaine Jelly 2% was placed into the urethra and 16Fr flexible Olympus cystoscope was inserted into the meatus after adequate lubrication. Procedure Consent confirmed Cystoscopy performed using a disposable Urovue digital 16 Occitan cystoscope. Meatus circumcised Urethra anterior and posterior urethra normal Prostatic Urethra unremarkable Bladder examination with retroflexion of cystoscope Bladder Orifices normal shape and position Bladder Capacity Normal Trabeculations grade 1 Cellule Formation None Diverticulum Formation None Mucosal Erythema None Bladder Tumor healing area of resection right lateral sidewall [id number] DISPOSABLE SCOPE URO-G FLEXIBLE SCOPE Procedure code (CPT) selection complete Office Meds lidocaine HCl 2 % mucosal jelly in applicator Performing Provider: Jaquan Aguilar MD [facility] Administered by: Rupinder Strange RN on 10/25/25 12:11 Dose Route Admin Location Dispensed Lot Number Expiration Date ND Advertising Writer 10 mL intra-urethral 10 mL nitrofurantoin monohydrate/macrocrystals 100 mg capsule Performing Provider: Jaquan Aguilar MD [facility] Administered by: Rupinder Strange RN on 10/25/25 12:11 Dose Route Admin Location Dispensed Lot Number Expiration Date ND Advertising Writer 100 mg PO 1 cap Assessment & Plan Assessment & Plan (1) Bladder cancer: Comment: T1 high-grade extensive Code(s): C67.9 - Malignant neoplasm of bladder, unspecified Category: Medical Plan Three-month follow-up check cysto plan for three-week repeat treatment Orders: Orders AMB Cystoscopy Today C67.9 - Malignant neoplasm of bladder, unspecified Patient Instructions: This note is constructed using voice recognition software. While every effort has been made to ensure accuracy returning officer errors may have been included. Imaging studies, laboratory and physical exam results were discussed and reviewed in detail. No major barriers to patient understanding were identified. An opportunity to ask questions regarding the treatment plan was provided. All questions were answered. The patient expressed understanding and agreement with the above treatment plan. The patient is aware they should contact our office by phone for worsening of their current condition or the appearance of new urologic symptoms. Compliance is encouraged with any medications and followup testing that is ordered. It is a privilege to participate in the urologic care of your patient. If you have any questions or concerns regarding treatment for the above conditions, or other urologic issues, please do not hesitate to contact me. The office telephone contact is [phone]. Sincerely, Dr Jaquan Aguilar MD, [facility] - Urology Compassionate Specialist Care for the Genitourinary System Coding Level of Care Code Complex visit Add On G2211 Diagnoses Bladder cancer C67.9 CPT Codes Cystoscopy - CPT: 91153-[id number] ([id number])
== END 2025-10-25 12:55 | disposition home or self-care (01) ==
LOC: HO.HUSH 11:01
PROVIDERS: PCP Nurse Practitioner Family; Visit Provider Urology
DX: C67.9 Malignant neoplasm of bladder, unspecified (principal)
CPT/HCPCS: 52000; 99213

== ENCOUNTER → 2025-10-25 11:01 | Outpatient (BNVA) | payer OTHER, SELFPAY | PROVIDERS: PCP Nurse Practitioner Family; Visit Provider Urology | DX: C67.4 Malignant neoplasm of posterior wall of bladder (principal) | CPT/HCPCS: 52000; 99212 ==